=== PATIENT | female | born 1965 | race African-American/Black ===

== ENCOUNTER 2022-08-06 08:50 | Outpatient (CLI) | payer MEDICARE, MEDICAID, SELFPAY ==
--- NOTE | 2022-08-06 09:00 | CRLHL7_ITS ---
For Patients: As a result of the Century Cures Act, medical imaging exams and procedure reports are released immediately into your electronic medical record. You may view this report before your referring provider. If you have questions, please contact your health care provider. INDICATION: right flank pain TECHNIQUE: CT abdomen and pelvis without contrast, stone protocol. COMPARISON: None. FINDINGS: Kidney/ureters: Moderate bilateral renal cortical atrophy. Bilateral renal hypodensities likely represent cysts although subcentimeter lesions are too small characterize. No kidney or ureteral stones and no hydronephrosis. No sign of perinephric inflammation. Ureters are normal in caliber. The bladder is decompressed. Liver/gallbladder/bile ducts: The liver is normal in size, shape and attenuation. Status post cholecystectomy. No biliary dilatation. Spleen/pancreas/adrenal glands: The spleen, adrenal glands and pancreas are within normal limits. GI tract: No evidence of bowel obstruction. Nonspecific submucosal fat deposition throughout the colon, predominantly involving the cecum and ascending colon. Appendix appears normal. Abdominal wall/omentum/peritoneum: No free air or significant free fluid. No mass or inflammation. Lymph nodes: No lymphadenopathy. Pelvis: Unremarkable pelvis. Lower chest: Trace bibasilar atelectasis and pleural thickening. Bones: Mild multilevel degenerative spondylosis without acute fracture or aggressive osseous lesion. IMPRESSION: 1. No evidence of radiopaque nephroureterolithiasis or hydroureteronephrosis. 2. Moderate bilateral renal cortical atrophy. Bilateral renal hypodensities likely represent cysts although subcentimeter lesions are too small characterize. 3. Nonspecific submucosal fat deposition throughout the colon, predominantly involving the cecum and ascending colon. Please note that all CT scans at this facility use dose modulation, iterative reconstruction, and/or weight-based dosing when appropriate to reduce radiation dose to as low as reasonably achievable. Dictated by Stephan Diop MD @ 08/06/2022 10:14:12 AM (Electronically Signed)
== END 2022-08-06 08:51 | disposition home or self-care (01) ==
LOC: CT 08:55
PROVIDERS: Visit Provider Internal Medicine Nephrology
DX: R10.9 Unspecified abdominal pain (principal); N28.1 Cyst of kidney, acquired
CPT/HCPCS: 74176

== ENCOUNTER 2022-09-08 22:26 | Outpatient (CLI) | payer MEDICARE, MEDICAID, SELFPAY | END 2022-09-08 22:27 | disposition home or self-care (01) | LOC: AMB 09-11 23:12 | PROVIDERS: Visit Provider Emergency Medicine Emergency Medical Services | DX: R06.09 Other forms of dyspnea (principal) | CPT/HCPCS: A0425; A0427 ==

== ENCOUNTER 2022-09-08 23:02 | Emergency (ER) | payer MEDICARE, MEDICAID, SELFPAY ==
[2022-09-08 23:08] VITALS: BP 162/84; PULSE 105; RESP 20; TEMP 37.7; O2SAT 98; BMI 34.2
--- NOTE | 2022-09-08 23:27 | CRLHL7_ITS ---
For Patients: As a result of the Century Cures Act, medical imaging exams and procedure reports are released immediately into your electronic medical record. You may view this report before your referring provider. If you have questions, please contact your health care provider. HISTORY: Shortness of breath. COMPARISON: None available. FINDINGS: A portable semi-erect AP view of the chest was obtained at 0050 hours. There is mild diffuse interstitial pulmonary edema with mild vascular engorgement, findings of mild congestive failure. There is no sign of a pleural effusion. There is mild enlargement of the heart. There are sternal wires from median sternotomy. The mediastinum is otherwise normal in appearance. The osseous structures are otherwise normal in appearance for the patient`s age. IMPRESSION: Mild congestive failure. Mild cardiomegaly. Dictated by Veto Corbett MD @ 09/09/2022 1:27:47 AM (Electronically Signed)
--- NOTE | 2022-09-08 23:28 | ED.SOB ---
HPI - SOB/Dyspnea General Chief Complaint: Shortness of Breath/Dyspnea Stated Complaint: Shortness of Breath Time Seen by Provider: 09/08/22 23:19 History of Present Illness HPI Narrative: This 56-year-old female comes in reporting shortness of breath that began this evening. She woke up about 3 hours prior to arrival and felt shortness of breath that seemed to bit worse with exertion. She rested for a while and seemed to improve but then when getting up she felt return of the same symptoms of shortness of breath. She had some mild lightheadedness but denies having any chest pain, nausea, vomiting, or diaphoresis. She does have a history of heart transplant and is scheduled in 2 days to have thorough recheck of her heart. She states that she has had a cough recently and does arrive with a temperature at 99.9?. Her heart rate is also a bit increased at 105 beats per minute. She is maintaining sufficient oximetry at 98% on room air. Review of Systems Status of ROS: Reports: 10 or more systems reviewed and unremarkable except as noted in History and below Narrative: Constitutional: No fevers, no weight gain or loss. Eyes: No discharge. No vision changes. HENT: No congestion, no sore throat, no ear pain. Cardiovascular: No chest pain, no palpitations. Respiratory: No wheezes. Occasional cough. Shortness of breath as described above. Gastrointestinal: No abdominal pain, no vomiting, no diarrhea. Genitourinary: No dysuria, no hematuria. Musculoskeletal: Normal range of motion. Skin: No rashes, no pruritis. Neurological: No dizziness, weakness, sensory change, speech change. Endo/Heme/Allergies: No bruising or bleeding. No polydipsia. Pysch: no suicidality, no anxiety, no insomnia. All other systems reviewed and are negative. Exam Narrative: Exam Narrative: Constitutional: Well-developed, well-nourished, no acute distress. HEENT: Normocephalic, atraumatic. Neck: Normal range of motion. Nontender. Supple. Heart: Regular. Normal rate. Intact distal pulses. Lungs: Clear to auscultation. No chest discomfort. No wheezes, rhonchi, or rales. Abdomen: Normal bowel sounds. Nontender. No rebound tenderness. Genitalia: Deferred. Back: No midline tenderness. Normal range of motion. Extremities: Normal range of motion. No injury. No pedal edema. Skin: Intact. No rash. Warm. No erythema or pallor. Neurologic: No altered sensation. No weakness. Alert and oriented. Psychiatric: No suicidality. No anxiety or depression. No insomnia. Nursing notes and vitals signs are reviewed. Const: Vital Signs, click to edit/add: Vital Signs - 24 hr 09/08/22 23:08 Temperature 99.9 F H Pulse Rate [Left R adial] 105 H Respiratory Rate 20 Blood Pressure [Ri ght Upper Arm] 162/84 H Pulse Oximetry 98 Oxygen Delivery Me thod Room Air Course Vital Signs Vital signs: Initial Vital Signs Temperature 99.9 F H 09/08/22 23:08 Temperature Source Temporal Artery Scan 09/08/22 23:08 Pulse Rate 105 H 09/08/22 23:08 Pulse Rhythm 09/08/22 23:08 Respiratory Rate 20 09/08/22 23:08 Blood Pressure 162/84 H 09/08/22 23:08 Blood Pressure Mean 110 09/08/22 23:08 Blood Pressure Position Semi-Fowlers 09/08/22 23:08 Pulse Oximetry 98 09/08/22 23:08 Oxygen Delivery Method 09/08/22 23:08 Vital Signs Temperature 99.9 F H 09/08/22 23:08 Pulse Rate 105 H 09/08/22 23:08 Respiratory Rate 20 09/08/22 23:08 Blood Pressure 162/84 H 09/08/22 23:08 Pulse Oximetry 98 09/08/22 23:08 Oxygen Delivery Method 09/08/22 23:08 Temperature 99.9 F H 09/08/22 23:08 Pulse Rate 105 H 09/08/22 23:08 Respiratory Rate 20 09/08/22 23:08 Blood Pressure 162/84 H 09/08/22 23:08 Pulse Oximetry 98 09/08/22 23:08 Oxygen Delivery Method 09/08/22 23:08 MDM - SOB/Dyspnea MDM Narrative Medical decision making narrative: This patient comes in with a report of shortness of breath that occurred this evening just few hours prior to arrival. She is not showing any signs of accessory muscles involved in breathing. She is maintaining sufficient oximetry on room air at 98% however her pulse is slightly increased an as his her respiratory rate. She does arrive with temperature of 99.9?. She does have a history of heart transplant and does not describe any chest pain. 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 This is scheduled 2 days from now. Chest x-ray and labs are acquired with results pending at this time. Care for this patient is transferred to the overnight MD at the end of my shift. Dr. Iyer will look after test results and plan accordingly. ECG Data Attestation: I personally reviewed and interpreted this ECG as follows: Interpretation: Sinus tachycardia, rate 100 Cantu beats per minute. There are no specific ST or T-wave abnormalities. Discharge Plan Discharge Clinical Impression: Shortness of breath Follow Up/Referrals: Provider,Not a Local [Primary Care Provider] -
[2022-09-09] VITALS (7 sets, daily range): PULSE 110–114; O2SAT 98–100
[2022-09-09 00:24] LABS: PCR FLU A Negative PCR FLU A (Negative); PCR FLU B Negative PCR FLU B (Negative); PCR RSV Negative PCR RSV (Negative)
[2022-09-09 00:25] LABS: Basophils Absolute Auto 0.02 K/uL (0.00-0.30); Basophils Percent Auto 0.2 % (0.0-3.0); Eosinophils Absolute Auto 0.11 K/uL (0.00-0.50); Eosinophils Percent Auto 1.2 % (0.0-7.0); Hematocrit 32.9 % (33.0-51.0); Hemoglobin* 10.7 gm/dL (12.0-16.0); Immature Granulocytes Abs Auto 0.08 K/uL (0.00-0.30); Immature Granulocytes Pct Auto 0.8 %; Lymphocytes Percent Auto 12.5 % (20-44); Mean Corpuscular HGB Conc 33 gm/dL (32-36); Mean Corpuscular Hemoglobin 34 pg (26-34); Mean Corpuscular Volume 104 fL (80-100); Monocytes Percent Auto 7.1 % (0.0-11.0); Neutrophils Percent Auto 78.2 % (42.0-72.0); Platelet Count* 262 K/uL (140-440); RDW Coefficient of Variation % 12.4 % (11.5-15.5); Red Blood Count 3.17 m/uL (4.00-5.20); White Blood Count* 9.44 K/uL (4.50-11.00)
[2022-09-09 00:25] LABS: SARS PCR* Negative SARS-CoV-2 (Negative)
[2022-09-09 00:26] LABS: Slide Review Reflex No
[2022-09-09 00:31] LABS: Troponin, Point-of-Care* 0.02 ng/ml (0.01-0.04)
[2022-09-09 00:40] LABS: Chloride* 102 mmol/L (96-114); Sodium* 138 mmol/L (135-149)
[2022-09-09 00:43] LABS: Blood Urea Nitrogen* 69 mg/dL (7-30); Calcium* 9.2 mg/dL (8.4-10.6); Carbon Dioxide* 22 mmol/L (20-32); Glucose* 96 mg/dL (60-115)
[2022-09-09 00:45] LABS: D Dimer Quantitative* 1.03 ug/ml (0.00-0.50)
[2022-09-09 00:49] LABS: Potassium* 6.7 mmol/L (3.6-5.1)
[2022-09-09 00:50] LABS: Creatinine* 17.6 mg/dL (0.5-1.5); Est. Creatinine Clearance* 3.38; Estimated Glomerular Filt Rate 2 ml/min
[2022-09-09 00:56] LABS: NT Pro B Type NatriureticPept* 24300 pg/mL
[2022-09-09] MEDS: AMOXICILLIN/CLAVULANATE 875 mg/125 mg TABLET PO (02:03)
== END 2022-09-09 02:21 | disposition home or self-care (01) ==
PROVIDERS: Emergency Provider Emergency Medicine Emergency Medical Services
DX: E87.70 Fluid overload, unspecified (principal); E87.5 Hyperkalemia
CPT/HCPCS: 36415; 71045; 80048; 83880; 84484; 85025; 85379; 87040; 87502; 87634; 87635; 93005; 94761; 96365; 99284; A9270; J0610

== ENCOUNTER 2023-07-09 14:42 | Emergency (ER) | payer MEDICARE, MEDICAID, SELFPAY ==
[2023-07-09] VITALS (13 sets, daily range): BP systolic 116–141; BP diastolic 80–92; PULSE 89–100; RESP 18; TEMP 36.8; O2SAT 78–100; BMI 26.8
--- NOTE | 2023-07-09 15:00 | ED_ITS ---
HPI - Weakness General Time Seen by Provider: 15:00 Date Seen: 07/09/23 Chief complaint: Weakness Stated complaint: Confusion, hallucinations post op Time Seen by Provider: 07/09/23 14:58 Source: patient and RN notes reviewed Mode of arrival: ambulatory Limitations: no limitations History of Present Illness HPI Narrative: Patient is a 57-year-old female with end-stage renal disease undetermined etiology coming in with weakness, hallucinations. She missed 1 dialysis last week, missed her dialysis this morning as she was just too tired and fatigued to get up. Two weeks ago she had a mass or nodule removed from her right lung, it had been growing. She is going to be listed on the kidney transplant list, they were completing her workup to ensure that there was no cancer in this nodule so that she was appropriate for listing. She had a heart transplant for cardiomyopathy of unknown etiology dating back to 2004, transplant happened at the [facility] in 2014. They believe her renal failure may stem from the heart transplant per her report. She has had no fevers. Since the hospitalization, she is been having visual hallucinations. She is seen her grandkids in her room and talking to them at night. She becomes aware that she is hallucinating and can ground herself. These are happening more at night. She was on scheduled oxycodone and Robaxin during the hospitalization, has been diminishing the. She has use p.r.n. oxycodone for years per report. They do agree that this may be medication related but wanted her evaluated. She is plain a game on handheld device and talking to me while I am in there with her, she is accompanied by her daughter. No active hallucinations at this time. She does not make any urine and has not for years per report. Complaint: generalized weakness and lack of energy Related Data Home Medications Medication Instructions Recorded Confirmed aspirin 81 mg chewable tablet 1 tab PO DAILY 07/09/23 07/09/23 folic acid 1 mg tablet 1 mg PO DAILY 07/09/23 07/09/23 levetiracetam 1,000 mg tablet 1,000 mg PO QPM 07/09/23 07/09/23 losartan 25 mg tablet (Cozaar) 25 mg PO DAILY 07/09/23 07/09/23 mycophenolate mofetil 500 mg tablet 500 mg PO BID 01/10/24 01/10/24 oxycodone 10 mg tablet 10 mg PO Q6H PRN chronic pain 07/09/23 07/09/23 pantoprazole 40 mg tablet,delayed 40 mg PO DAILY 07/09/23 07/09/23 release rosuvastatin 10 mg tablet 10 mg PO DAILY 07/09/23 07/09/23 tacrolimus 0.5 mg capsule, mg PO 07/09/23 immediate-release Allergies Allergy/AdvReac Type Severity Reaction Status Date / Time eszopiclone [From Lunesta] Allergy Intermediate Verified 09/09/22 00:22 Review of Systems Status of ROS: Reports: 6 or more systems reviewed and unremarkable except as noted in History and below [facility] Social History Smoking Status: Never smoker How often do you have a drink containing alcohol: never How often do you have six or more drinks on one occasion: Never AUDIT-C Alcohol total score: 0 Non-prescribed substance use: denies use service: No Exam Const: Vital Signs, click to edit/add: Vital Signs - 24 hr 07/09/23 20:32 07/09/23 20:33 Pulse Rate 89 98 Blood Pressure 135/92 H Pulse Oximetry 94 78 L Andie is a 57-year-old female that is alert, interactive, no apparent distress. She is able to speak in complete sentences, symmetrical facial function. Neck is supple, no masses. Lungs are clear, good air entry, no wheezing or crackles. She has a bandage on the right posterolateral lower chest wall, see no evidence of swelling or erythema around this. CV regular rate and rhythm, no murmur, normal S1 on S2, no S3-S4. Abdomen is soft, nontend er, nondistended. She is ambulatory into the ED of her own accord, moving all her extremities. No significant edema, no lower extremity tenderness. Course Course ED Course: They are most concerned about the hallucinations. We did discuss infectious etiology, possible side effects of medications. Electrolyte abnormalities need to be considered, uremia given she is a dialysis patient. Have reviewed with them that we cannot accommodate dialysis here, unfortunately earlier today there are absolutely no beds elsewhere anywhere in the system. Patient reported to me that she usually is hospitalized at the [facility]. I did review with her that we cannot transfer if there is no capacity for bed placement. However, I think at this point we just need to do our workup and see where we are at. If we find no significant abnormality, it is possible she could be discharged to home with further follow-up with her Nephrology Team to discuss medication management. It certainly could be that with the buildup of the increased use of oxycodone and Robaxin that she is having some hallucinations or complications with medication management. Will do full laboratory workup, will look at a chest x-ray, head CT. We have also discussed doing the triple viral swab which they do agree to do. Reevaluation(s) Time of Reevaluation #1: 17:16 Reevaluation #1: Reviewed the imaging reports with patient and her daughter. She has had a prior stroke, could not pull up a CT in her my chart. Stroke was in 2019, sounds as if it was complicated by seizure. She was noted to be tired, sleeping more, slurred speech. I was able to pull up her recent white blood count on 07/02/2023 which was 6600. We reviewed her white blood count is much more elevated in the 18,000 range right now. I suspect possible respiratory infection given her chest x-ray findings and recent surgery there. We have agreed to do a chest CT noncontrast. We reviewed that her creatinine is in the 9 range but the e lectrolytes are stable. We reviewed that there is no capacity to do an MRI here of her brain tonight. Her daughter is going to see if she can find an old head CT report while we await on the chest CT to be done. In any event, her hallucinations have been present for over 2 weeks, she has no new focal neurologic deficit that would suggest she needs any emergent brain MRI tonight. I do think in outpatient brain MRI is safe to be done at a later date if there is any question of a new stroke. Time of Reevaluation #2: 19:01 Reevaluation #2: Have reviewed with patient and her daughter that there are some CT findings of the chest that would point to infection. With her elevated white count, increased weakness this morning, do think she has infection. Unfortunately she is a dialysis patient, this severely limits capacity for hospitalization. She states she wants to go into the hospital, reviewed with her daughter that the only [place] bed that we found open was in [facility] the [facility] facility. She declined transferring her mom there and obviously do not know that they could take her, haven't called anywhere for her. Her mom wants to go to the [facility]. I have again reviewed with them that there really is no bed capacity. With a very recent transfer, the only beds that I found available were at the [facility] and potentially 1 in [facility]. I doubt either of these facilities could take her due to the dialysis but we will check. Her daughter does not want her to go to either of these places. We will call the [facility] system and see if they have any new capacity. If she discharges, would likely have her take Augmentin at renal dosing. Have provided a copy of the CT report for her daughter to get to her surgeon. Her hallucinations have been going on for 2 weeks, are not worsening, daughter did see that she had had an old prior left cerebral infarct in prior documents. I was not able to see that. I do think that she is stable to discharge overnight with outpatient follow-up tomorrow for recheck. I do understand her request to go in the hospital and thus will check to see if there is any capacity. Time of Reevaluation #3: 19:20 Reevaluation #3: Nursing staff did call, the transfer nurse told them that the whole system was at capacity, could try to call back at 9:00 a.m. in the morning. I related this to the patient and her daughter. She really wants admission. I reviewed with them that we do not have beds here, would not admit her here due to dialysis anyway. I will personally try to call up to the [facility], her surgeon was Dr. Gigi Staples. I do understand her complexity, immunocompromised state, would favor her being admitted. Did talk to the transfer center at 7:24 p.m.. They can wait list her, will see if I can talk to them further, she is putting this through to the nurse. Do need to consider antibiotics for this patient but I am going to try to wait to talk to someone there 1st. Consultations Consultation #1: Did speak with the covering thoracic surgeon Dr. Ferguson, she agreed patient should be transferred to the ED. Did subsequently speak with Dr. Howell in the ER, he agreed with her complexity, probable underlying right lung infection status post surgery in a patient likely did need dialysis but not emergently. She has medical complexities of end-stage renal disease on dialysis, status post heart transplant on immunosuppressants. Did start an IV, opted to give her renally dosed Zosyn at 2.25 mg. Lab her on cardiac monitoring, electrolytes just recently wrist stable but could change for her. She will go to the [facility] ER. I have contacted Radiology, they are going to push all of her images through. Time: 19:56 Vital Signs Vital signs: Initial Vital Signs Temperature 98.2 F 07/09/23 14:49 Temperature Source Temporal Artery Scan 07/09/23 14:49 Pulse Rate 96 07/09/23 14:49 Respiratory Rate 18 07/09/23 14:49 Blood Pressure 121/80 07/09/23 14:49 Blood Pressure Mean 93 07/09/23 14:49 Blood Pressure Position Sitting 07/09/23 14:49 Pulse Oximetry 95 07/09/23 14:49 Oxygen Delivery Method Room Air 07/09/23 14:49 Vital Signs Temperature 98.2 F 07/09/23 14:49 Pulse Rate 96 07/09/23 14:49 Respiratory Rate 18 07/09/23 14:49 Blood Pressure 121/80 07/09/23 14:49 Pulse Oximetry 95 07/09/23 14:49 Oxygen Delivery Method Room Air 07/09/23 14:49 Temperature 98.3 F 07/09/23 17:03 Pulse Rate 98 07/09/23 20:33 Respiratory Rate 18 07/09/23 17:53 Blood Pressure 135/92 H 07/09/23 20:32 Pulse Oximetry 78 L 07/09/23 20:33 Oxygen Delivery Method Room Air 07/09/23 17:53 Medications Administered Medications: Discontinued Medications Generic Name Dose Route Start Last Admin Trade Name Freq PRN Reason Stop Dose Admin Acetaminophen 650 mg 07/09/23 20:26 07/09/23 20:35 Acetaminophen 325 Mg Tablet PO 07/09/23 20:27 650 mg ONCE ONE Administration Piperacillin Sod/Tazobactam 100 mls @ 200 mls/hr 07/09/23 19:51 07/09/23 21:27 Sod 2.25 gm/ Sodium Chloride IVPB 07/09/23 19:52 Infused ONCE ONE Infusion MDM - Weakness Lab Data Attestation: I reviewed the patient's lab results. Labs: Lab Results 07/09/23 07/09/23 Range/Units 15:01 15:25 WBC 18.21 H (4.50-11.00) K/uL RBC 2.60 L (4.00-5.20) m/uL Hgb 8.6 L (12.0-16.0) gm/dL Hct 26.6 L (33.0-51.0) % MCV 102 H (80-100) fL MCH 33 (26-34) pg MCHC 32 (32-36) gm/dL RDW Coeff of Regine 14.8 (11.5-15.5) % Plt Count 439 (140-440) K/uL Neut % (Auto) 88.5 H (42.0-72.0) % Lymph % (Auto) 5.9 L (20-44) % Dane % (Auto) 3.6 (0.0-11.0) % Eos % (Auto) 1.6 (0.0-7.0) % Baso % (Auto) 0.2 (0.0-3.0) % Neut # (Auto) 16.10 H (1.7-7.0) K/uL Lymph # (Auto) 1.10 (0.90-2.90) K/uL Dane # (Auto) 0.70 (0.00-0.90) K/UL Eos # (Auto) 0.30 (0.00-0.50) K/uL Baso # (Auto) 0.00 (0.00-0.30) K/uL Abs Immat Gran (auto) 0.00 (0.00-0.30) K/uL Imm/Tot Granulo (auto) 0.2 % Sodium 135 (135-149) mmol/L Potassium 4.1 (3.6-5.1) mmol/L Chloride 98 (96-114) mmol/L Carbon Dioxide 21 (20-32) mmol/L Anion Gap 16 H (7-15) mEq/L BUN 40 H (7-30) mg/dL Creatinine 9.2 H (0.5-1.5) mg/dL Estimated Creat Clear 6.39 Estimated GFR 5 ml/min Glucose 107 (60-115) mg/dL Lactate 1.3 (0.5-1.9) mmol/L Calcium 9.8 (8.4-10.6) mg/dL Phosphorus 3.6 (2.5-4.5) mg/dL Magnesium 2.4 (1.5-2.6) mg/dL Total Bilirubin 0.8 (0.1-1.5) mg/dL AST 34 (12-35) U/L ALT 17 (4-35) U/L Alkaline Phosphatase 245 H (40-150) U/L Ammonia < 9.0 L (13.1-30.0) umol/L Troponin I 0.02 (0.01-0.04) ng/mL C-Reactive Protein 16.5 H (0.5-1.0) mg/dL NT-Pro-B Natriuret Pep 05822 pg/mL Total Protein 7.7 (6.0-8.3) g/dL Albumin 4.1 (3.3-5.0) g/dL Procalcitonin 1.46 H (<0.50) ng/mL SARS-CoV-2 (PCR) Negative SARS-CoV-2 (Negative) Influenza Type A (PCR) Negative PCR FLU A (Negative) Influenza Type B (PCR) Negative PCR FLU B (Negative) RSV (PCR) Negative PCR RSV (Negative) Imaging Data CT scan - head: Attestation: I have reviewed the pertinent imaging results. My impression: Did speak with radiologist regarding these findings. Unfortunately there was no heavy equipment service technician available immediately after taking the phone call. Patient has had symptoms for over 2 weeks now, this is not likely an acute infarct. Will be speaking with her and her daughter Radiologist's impression: Patient: ANDIE OROZCO Facility:?[facility] Patient ID:?[id number] Site Patient ID:?[id number]. Site :?1965 Study:?CT Head w/o Contrast-07/09/2023 4:27:20 PM Ordering Physician:Dania Salinas Final Report: INDICATION: Hallucinations. TECHNIQUE: Noncontrast CT of the head with multiplanar reformat in bone and soft tissue algorithms. COMPARISON: None available. FINDINGS: No acute intracranial hemorrhage. A focal hypodensity in the left temporo- occipital region in proximity to Wernicke`s area. Suggestion of mild ex vacuo dilatation of the underlying left lateral ventricle. No ventricular obstruction. Mild atherosclerotic calcification of the carotid siphons. The skull base and calvarium are within normal limits. Orbits are unremarkable. Paranasal sinuses and mastoid air cells are predominantly clear. IMPRESSION: 1. No acute intracranial hemorrhage. 2. Focal hypodensity in the left temporo-occipital region in proximity to Wernicke`s area, age-indeterminate but favored to be chronic. If there is clinical concern for acute ischemia, consider further MR characterization. Please note that all CT scans at this facility use dose modulation, iterative reconstruction, and/or weight-based dosing when appropriate to reduce radiation dose to as low as reasonably achievable. Dictated by Yimi Corey MD @ 07/09/2023 4:57:31 PM (Electronic Signature) Chest x-ray: Attestation: I have reviewed the pertinent imaging results. My impression: See changes on her right lung field, await Radiology over-read. Radiologist's impression: Patient: [facility] Facility:?[facility] Patient ID:?[id number] Site Patient ID:?[id number]. Site :?1965 Study:?XRay Chest 2 VIEWS-07/09/2023 4:27:27 PM Ordering Physician:Dania Salinas Final Report: INDICATION: WEAKNESS, RT LUNG NODULE REMOVAL 06/26/23 TECHNIQUE: Chest 2 views. COMPARISON: Chest radiograph from September 09, 2022 FINDINGS/IMPRESSION: Status post median sternotomy. Mild cardiomegaly. Right-sided pleural effusion tracking along the right lateral chest wall and extending in the right major fissure with likely extension to the right lung apex with oval-shaped lucency seen at the right lung apex, may represent small amount of air within the pleural effusion. Right mid lung zone opacities, may represent atelectatic changes versus an acute infectious/inflammatory process. The left lung is clear. No displaced fractures. Dictated by Amol Lance MD @ 07/09/2023 5:02:31 PM (Electronic Signature) CT scan - chest: Attestation: I have reviewed the pertinent imaging results. Radiologist's impression: Patient: ANDIE [place] Facility:?[facility] Patient ID:?[id number] Site Patient ID:?[id number]. Site :?1965 Study:?CT Chest w/o Contrast-07/09/2023 5:59:28 PM Ordering Physician:Dania Salinas Final Report: INDICATION: Weakness, leukocytosis and recent right lung surgery. TECHNIQUE: Axial images were obtained from the thoracic inlet to the diaphragm. Reformats: Coronal and sagittal IV Contrast: None COMPARISON: None. FINDINGS: Mediastinum: Thyroid gland is unremarkable. The patient is status post cardiac transplant with a suture line at the proximal pulmonary artery and at the distal ascending aorta. Precarinal lymph nodes measure up to 10 millimeters in short axis. Lungs and Pleural Space: Pleural thickening bilaterally with some calcification of the left pleura. Trace loculated right pleural fluid in the inferior aspect of the hemithorax. Trace right pleural air. Minimal loculated air at the apex of the right hemithorax with suture line at the right upper lobe with adjacent linear scarring and slight bronchiectasis. Right upper lobe pulmonary nodules measuring 6 millimeters (series 3, image 32) and 5 millimeters (series 3, image 37). Elongated soft tissue lesion extends from the level of the right upper lobe through the minor fissure into the right lower lobe abutting the right major fissure. This measures at least 6 centimeters in length (series 5, image 69). Mild dependent atelectasis within the lower lungs with bandlike areas of parenchymal scarring. Chest wall: No masses. Upper abdomen: Status post cholecystectomy. Right renal cyst measuring 2.9 centimeters. Bones: Status post median sternotomy. Periosteal thickening adjacent to the left 6th and 7th ribs anteriorly. IMPRESSION: 1. Status post right lung surgery by history with right pleural thickening and trace loculated right pleural effusion inferiorly. Minimal loculated areas of pneumothorax, likely related to the recent surgery. 2. Indeterminate pulmonary nodules right upper lobe measuring 6 millimeters and 5 millimeters with indeterminate tubular structure extending from the right upper lobe into the right middle lobe. Differential is broad including infectious process, mass lesion or postsurgical scarring. Consider re-evaluation at short-term follow-up. 3. Scattered areas of subsegmental atelectasis within both lungs. 4. Status post cardiac transplant. Please note that all CT scans at this facility use dose modulation, iterative reconstruction, and/or weight-based dosing when appropriate to reduce radiation dose to as low as reasonably achievable. Dictated by Jr Shay MD @ 07/09/2023 6:47:15 PM (Electronic Signature) ECG Data Attestation: I personally reviewed and interpreted this ECG as follows: (Sinus rhythm with sinus arrhythmia, 94 beats per minute. Incomplete right bundle branch block, left anterior fascicular block. No evidence of any active ischemia. QT corrected 477 milliseconds.) ECG interpretation date: 07/09/23 Prior ECG tracings: not available for review Discharge Plan Discharge Clinical Impression: Hallucinations Complication, postoperative infection Qualifiers: Encounter type: initial encounter Postoperative infection type: organ or organ space surgical site Qualified Code(s): T81.43XA - Infection following a procedure, organ and space surgical site, initial encounter Patient Disposition: [facility] Discharge Location: [facility] Activity Level: Activity as Tolerated Discharge Diet: Regular
--- NOTE | 2023-07-09 15:15 | CRLHL7_ITS ---
For Patients: As a result of the Century Cures Act, medical imaging exams and procedure reports are released immediately into your electronic medical record. You may view this report before your referring provider. If you have questions, please contact your health care provider. INDICATION: WEAKNESS, RT LUNG NODULE REMOVAL 06/26/23 TECHNIQUE: Chest 2 views. COMPARISON: Chest radiograph from September 09, 2022 FINDINGS/IMPRESSION: Status post median sternotomy. Mild cardiomegaly. Right-sided pleural effusion tracking along the right lateral chest wall and extending in the right major fissure with likely extension to the right lung apex with oval-shaped lucency seen at the right lung apex, may represent small amount of air within the pleural effusion. Right mid lung zone opacities, may represent atelectatic changes versus an acute infectious/inflammatory process. The left lung is clear. No displaced fractures. Dictated by Amol Lance MD @ 07/09/2023 5:02:31 PM (Electronically Signed)
--- NOTE | 2023-07-09 15:15 | CRLHL7_ITS ---
For Patients: As a result of the Century Cures Act, medical imaging exams and procedure reports are released immediately into your electronic medical record. You may view this report before your referring provider. If you have questions, please contact your health care provider. INDICATION: Hallucinations. TECHNIQUE: Noncontrast CT of the head with multiplanar reformat in bone and soft tissue algorithms. COMPARISON: None available. FINDINGS: No acute intracranial hemorrhage. A focal hypodensity in the left temporo-occipital region in proximity to Wernicke`s area. Suggestion of mild ex vacuo dilatation of the underlying left lateral ventricle. No ventricular obstruction. Mild atherosclerotic calcification of the carotid siphons. The skull base and calvarium are within normal limits. Orbits are unremarkable. Paranasal sinuses and mastoid air cells are predominantly clear. IMPRESSION: 1. No acute intracranial hemorrhage. 2. Focal hypodensity in the left temporo-occipital region in proximity to Wernicke`s area, age-indeterminate but favored to be chronic. If there is clinical concern for acute ischemia, consider further MR characterization. Please note that all CT scans at this facility use dose modulation, iterative reconstruction, and/or weight-based dosing when appropriate to reduce radiation dose to as low as reasonably achievable. Dictated by Yimi Corey MD @ 07/09/2023 4:57:31 PM (Electronically Signed)
[2023-07-09 15:57] LABS: Lactate* 1.3 mmol/L (0.5-1.9)
[2023-07-09 16:08] LABS: Basophils Percent Auto 0.2 % (0.0-3.0); Eosinophils Percent Auto 1.6 % (0.0-7.0); Hematocrit 26.6 % (33.0-51.0); Hemoglobin* 8.6 gm/dL (12.0-16.0); Immature Granulocytes Pct Auto 0.2 %; Lymphocytes Percent Auto 5.9 % (20-44); Mean Corpuscular HGB Conc 32 gm/dL (32-36); Mean Corpuscular Hemoglobin 33 pg (26-34); Mean Corpuscular Volume 102 fL (80-100); Monocytes Percent Auto 3.6 % (0.0-11.0); Neutrophils Percent Auto 88.5 % (42.0-72.0); Platelet Count* 439 K/uL (140-440); RDW Coefficient of Variation % 14.8 % (11.5-15.5); White Blood Count* 18.21 K/uL (4.50-11.00)
[2023-07-09 16:09] LABS: PCR FLU A Negative PCR FLU A (Negative); PCR FLU B Negative PCR FLU B (Negative); PCR RSV Negative PCR RSV (Negative); SARS PCR* Negative SARS-CoV-2 (Negative)
[2023-07-09 16:23] LABS: Slide Review Reflex No
[2023-07-09 16:24] LABS: Chloride* 98 mmol/L (96-114)
[2023-07-09 16:25] LABS: Albumin* 4.1 g/dL (3.3-5.0); Potassium* 4.1 mmol/L (3.6-5.1); Sodium* 135 mmol/L (135-149)
[2023-07-09 16:27] LABS: Creatinine* 9.2 mg/dL (0.5-1.5); Est. Creatinine Clearance* 6.39; Estimated Glomerular Filt Rate 5 ml/min
[2023-07-09 16:28] LABS: Alanine Aminotransferase* 17 U/L (4-35); Alkaline Phosphatase* 245 U/L (40-150); Anion Gap 16 mEq/L (7-15); Aspartate Amino Transferase* 34 U/L (12-35); Bilirubin Total* 0.8 mg/dL (0.1-1.5); Blood Urea Nitrogen* 40 mg/dL (7-30); Calcium* 9.8 mg/dL (8.4-10.6); Carbon Dioxide* 21 mmol/L (20-32); Glucose* 107 mg/dL (60-115); Total Protein* 7.7 g/dL (6.0-8.3)
[2023-07-09 16:29] LABS: Magnesium* 2.4 mg/dL (1.5-2.6); Phosphorus* 3.6 mg/dL (2.5-4.5)
[2023-07-09 16:40] LABS: Troponin I* 0.02 ng/mL (0.01-0.04)
[2023-07-09 16:44] LABS: Procalcitonin* 1.46 ng/mL (<0.50)
[2023-07-09 16:52] LABS: Ammonia* < 9.0 umol/L (13.1-30.0)
[2023-07-09 16:54] LABS: C Reactive Protein* 16.5 mg/dL (0.5-1.0)
[2023-07-09 16:55] LABS: NT Pro B Type NatriureticPept* 31000 pg/mL
--- NOTE | 2023-07-09 17:17 | CRLHL7_ITS ---
For Patients: As a result of the Century Cures Act, medical imaging exams and procedure reports are released immediately into your electronic medical record. You may view this report before your referring provider. If you have questions, please contact your health care provider. INDICATION: Weakness, leukocytosis and recent right lung surgery. TECHNIQUE: Axial images were obtained from the thoracic inlet to the diaphragm. Reformats: Coronal and sagittal IV Contrast: None COMPARISON: None. FINDINGS: Mediastinum: Thyroid gland is unremarkable. The patient is status post cardiac transplant with a suture line at the proximal pulmonary artery and at the distal ascending aorta. Precarinal lymph nodes measure up to 10 millimeters in short axis. Lungs and Pleural Space: Pleural thickening bilaterally with some calcification of the left pleura. Trace loculated right pleural fluid in the inferior aspect of the hemithorax. Trace right pleural air. Minimal loculated air at the apex of the right hemithorax with suture line at the right upper lobe with adjacent linear scarring and slight bronchiectasis. Right upper lobe pulmonary nodules measuring 6 millimeters (series 3, image 32) and 5 millimeters (series 3, image 37). Elongated soft tissue lesion extends from the level of the right upper lobe through the minor fissure into the right lower lobe abutting the right major fissure. This measures at least 6 centimeters in length (series 5, image 69). Mild dependent atelectasis within the lower lungs with bandlike areas of parenchymal scarring. Chest wall: No masses. Upper abdomen: Status post cholecystectomy. Right renal cyst measuring 2.9 centimeters. Bones: Status post median sternotomy. Periosteal thickening adjacent to the left 6th and 7th ribs anteriorly. IMPRESSION: 1. Status post right lung surgery by history with right pleural thickening and trace loculated right pleural effusion inferiorly. Minimal loculated areas of pneumothorax, likely related to the recent surgery. 2. Indeterminate pulmonary nodules right upper lobe measuring 6 millimeters and 5 millimeters with indeterminate tubular structure extending from the right upper lobe into the right middle lobe. Differential is broad including infectious process, mass lesion or postsurgical scarring. Consider re-evaluation at short-term follow-up. 3. Scattered areas of subsegmental atelectasis within both lungs. 4. Status post cardiac transplant. Please note that all CT scans at this facility use dose modulation, iterative reconstruction, and/or weight-based dosing when appropriate to reduce radiation dose to as low as reasonably achievable. Dictated by Jr Shay MD @ 07/09/2023 6:47:15 PM (Electronically Signed)
--- NOTE | 2023-07-09 19:01 | ED.NURSE ---
Pt report given to oncsallie RN
[2023-07-09] MEDS: PIPERACILLIN/TAZOBACTAM 2.25 GM in 0.9 % SODIUM CHLORIDE Mini-bag 100 ML IVPB (20:35)
[2023-07-09] MEDS: ACETAMINOPHEN 325 MG TABLET 650 MG PO (20:35)
--- NOTE | 2023-07-09 22:20 | ED.NURSE ---
This nurse called daughter and updated her to pt transfer to [facility]. Daughter aware of plan of care. Pt also informed daughter was called and updated.
== END 2023-07-09 22:20 | disposition short-term general hospital (02) ==
PROVIDERS: Emergency Provider Family Medicine
DX: R44.3 Hallucinations, unspecified (principal); T81.43XA Infection following a procedure, organ and space surgical site, initial encounter
CPT/HCPCS: 36415; 70450; 71046; 71250; 80053; 82140; 83605; 83735; 83880; 84100; 84145; 84484; 85025; 86140; 87631; 93005; 94761; 96365; 99285; A9270; J2543

== ENCOUNTER 2023-07-09 22:09 | Outpatient (CLI) | payer MEDICARE, MEDICAID, SELFPAY | END 2023-07-09 22:10 | disposition home or self-care (01) | LOC: AMB 07-14 02:47 | PROVIDERS: Visit Provider Emergency Medicine Emergency Medical Services | DX: J18.9 Pneumonia, unspecified organism (principal); R07.89 Other chest pain; R41.82 Altered mental status, unspecified; R06.09 Other forms of dyspnea | CPT/HCPCS: A0425; A0428 ==

== ENCOUNTER 2023-08-10 15:15 | Emergency (ER) | payer MEDICARE, MEDICAID, SELFPAY ==
[2023-08-10] VITALS (27 sets, daily range): BP systolic 165; BP diastolic 102–105; PULSE 101–111; RESP 28; TEMP 36.3; O2SAT 82–100; BMI 25.0
--- OUTSIDE RECORDS SUMMARY | 2023-08-10 16:15 | XMS_ITS | Encounter Summary ---
Author Name Unknown Organization [facility] Address [address] [place] [address] Care Team Providers Care Special Education Curriculum Specialist Name Role Phone Unavailable Primary Care Provider Unavailabl e Encounter Details Date Type Department Care Team (Late st Contact Info) Description 06/09/2023 Orders Only Division of Nephrology and Hypertension in [place], [place] [address] [place] [phone] Robert Engel Jr., D.O. [address] [place] [address] Social History Tobacco Use Types Packs/Day Years Used Date Smoking Tobacco: Never Assessed Nutrition Answer Date Recorded Nutrition: EVOO Fat Source Unknown 01/14 Nutrition: Servings of Fruits/Vegetables per Day Not on file 01/14/2022 Dental Answer Date Recorded Dental: Regular Dentist Unknown 01/15/20 Sex and Gender Information Value Date Recorded Sex Assigned at Not on file Gender Identity Not on file Sexual Orientation Not on file documented as of this encounter Plan of Treatment Not on file documented as of this encounter Visit Diagnoses Not on filedocumented in this encounter
--- OUTSIDE RECORDS SUMMARY | 2023-08-10 16:15 | XMS_ITS | Continuity of Care Document ---
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(Discharge Diagnosis) - 02/06/23 Discharge Disposition: Home or Self Care Attending Physician: YOSVANY Spann APRN, KELLEN, Bethany Allergies, Adverse Reactions, Alerts Substance Reaction Severity Status Liquid Adhesive Dermatitis Active Adhesive Bandage Contact dermatitis Blisters of multiple sites Unknown Active lisinopril Cough Unknown Active zolpidem sleep disturbance Unknown Active eszopiclone Headache Unknown Active buPROPion Itching Active oxyCODONE 1 Itching Unknown Active ARIPiprazole Insomnia Unknown Active 1Outside Source Comment: Itching with long acting; short acting does work with no side effects Immunizations Given and Recorded Vaccine Date Status Refusal Reason SARS-CoV-2 (COVID-19) [place] [id number] 08/14/20 Record ed SARS-CoV-2 (COVID-19) Esme Ad26 vacc 07/17/20 R ecorded influenza virus vaccine, inactivated 04/10/20 Massimo rded influenza virus vaccine, inactivated 1 07/23/19 Re corded influenza virus vaccine, inactivated 2 04/04/17 Re corded influenza virus vaccine, inactivated 3 04/28/15 Re corded influenza virus vaccine, inactivated 4 03/31/14 Re corded influenza virus vaccine, inactivated 5 06/20/13 Re corded influenza virus vaccine, inactivated 6 04/02/11 Re corded zoster vaccine, inactivated 7 07/23/19 Recorded zoster vaccine, inactivated 8 02/02/19 Recorded Tdap 9 02/02/19 Recorded Tdap 11/10/08 Recorded pneumococcal (PPS23) 01/19/18 Recorded pneumococcal (PPS23) 11/06/16 Recorded pneumococcal (PPS23) 10 04/28/15 Recorded pneumococcal (PCV13) 11 11/06/16 Recorded influenza 12 05/09/16 Recorded influenza 04/08/12 Recorded influenza 04/02/11 Recorded influenza 04/10/10 Recorded influenza 05/11/08 Recorded influenza 06/11/06 Recorded influenza 04/24/05 Recorded Hep B 11/26/13 Recorded pneumococcal (PCV7) 11/10/08 Recorded tetanus 11/28/98 Recorded tetanus 06/19/94 Recorded 1Result Comment: Route: Intramuscular Project Scheduler: [employer] 2Result Comment: Route: Intramuscular Project Scheduler: [employer] 3Result Comment: Route: Intramuscular Project Scheduler: [employer] 4Result Comment: Route: Intramuscular Project Scheduler: [employer] 5Result Comment: Route: Intramuscular Project Scheduler: [employer] 6Result Comment: Route: Intramuscular Project Scheduler: [employer] 7Result Comment: Route: Intramuscular Project Scheduler: [employer] 8Result Comment: Route: Intramuscular Project Scheduler: [employer] 9Result Comment: Route: Intramuscular Project Scheduler: [employer] 10Result Comment: Route: Intramuscular Project Scheduler: [employer] 11Result Comment: Route: Intramuscular Project Scheduler: Wyeth 12Result Comment: Route: Intramuscular Project Scheduler: Sanofi [employer] Medications aspirin 81 mg oral capsule 0 Refill(s) Start Date: 10/22/21 Status: Ordered cholecalciferol 1000 intl units oral capsule 1000.0 U, 0 Refill(s) Start Date: 10/22/21 Status: Ordered folic acid 1 mg oral tablet 0 Refill(s) Start Date: 10/22/21 Status: Ordered levETIRAcetam 1000 mg oral tablet 0 Refill(s) Start Date: 10/22/21 Status: Ordered lidocaine 0.5% topical gel 0 Refill(s) Start Date: 10/22/21 Status: Ordered midodrine 10 mg oral tablet 0 Refill(s) Start Date: 10/22/21 Status: Ordered Multiple Vitamins oral capsule 0 Refill(s) Start Date: 10/22/21 Status: Ordered Narcan 4 mg/0.1 mL nasal spray 4 mg, 0 Refill(s) Start Date: 10/22/21 Status: Ordered OLANZapine 5 mg oral tablet 7.5 mg, 0 Refill(s) Start Date: 10/22/21 Status: Ordered oxyCODONE 10 mg oral tablet 10 mg, 0 Refill(s) Start Date: 10/22/21 Status: Ordered rosuvastatin 10 mg oral tablet 10 mg, 0 Refill(s) Start Date: 10/22/21 Status: Ordered tacrolimus 0.5 mg oral capsule 0 Refill(s) Start Date: 10/22/21 Status: Ordered tacrolimus 1 mg oral capsule 0 Refill(s) Start Date: 10/22/21 Status: Ordered venlafaxine 37.5 mg oral tablet, extended release 37.5 mg, 0 Refill(s) Start Date: 10/22/21 Status: Ordered Problem List Condition Confirmation Course Effective Dates Status Health Status Informant Acquired arteriovenous fistula (disorder) Confirmed Active Anemia in chronic kidney disease Confirmed Active Cerebrovascular accident Confirmed 05/14/19 Active Chronic kidney disease due to type 2 diabetes mellitus (disorder) Confirmed Active Chronic rejection of cardiac transplant Confirmed Active Dependence on dialysis due to end stage renal disease Confirmed Active End stage renal failure on dialysis Confirmed 03/01/20 Active H/O: heart recipient Confirmed 07/15/18 Active 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) Confirmed Active Hyperlipidemia Confirmed 03/29/13 Active 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 Confirmed Active 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 Confirmed Active Immunodeficiency Confirmed Active Obstructive sleep apnea syndrome Confirmed 03/29/13 Active Peripheral neuropathic pain Confirmed 05/21/16 Active Recurrent major depressive episodes, moderate Confirmed Active Seizure Confirmed 07/03/18 Active Diagnosis Diagnosis Type Effective Dates Health Status Clinical Service Informant Recurrent major depressive episodes, moderate Discharge Diagnosis 02/06/23 End stage renal failure on dialysis Discharge Diagnosis 02/06/23 Obstructive sleep apnea syndrome Discharge Diagnosis 02/06/23 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 Discharge Diagnosis 02/06/23 Social History Social History Type Response Smoking Status Former smoker, quit more than 30 days ago entered on: 06/27/22 Sex Patient Care team information Care Team Personnel Name: [facility] Position: External Provider - Clinic Member Role: Dialysis Center Address: Address: [address] [place] [address] Name: Sanchez Sanchez Position: External Provider Member Role: Legal Project Manager Name: Elise Borja Position: External Provider Member Role: Car Builder Name: CLAU Castle Tammy Position: Nurse - [facility] Member Role: Broadband Technician Name: Elise Booker Position: External Provider Member Role: Family Medicine Name: Samuel Calhoun Position: External Provider Member Role: Public Health Educator Name: Samuel Calhoun Position: External Provider - Public Health Educator Member Role: Public Health Educator Address: Address: [address] [place] [id number]- Name: Tx Ana Copeland Position: External Provider Member Role: Nuclear Instructor
--- OUTSIDE RECORDS SUMMARY | 2023-08-10 16:15 | XMS_ITS | Clinical Summary ---
Author Name Unknown Organization [facility] Address [address], [place] [address] Phone Care Team Providers Care Shank Archer Name Role Phone Elise Booker MD Primary Care Provider Allergies Active Allergy Reactions Criticality Noted Date Comments Lisinopril Cough 01/14/2023 Medications Medication Sig Dispensed Refills Start Date End Date Status Alcohol Swabs (Alcohol Wipes) 70 % pads USE FOR CHECKING BLOOD SUGARS 2-3 TIMES DAILY OR DIRECTED. Call clinic to schedule follow up appointment. 0 03/07/2017 Active ALPRAZolam (XANAX) 0.5 MG tablet Take 0.5 mg by mouth once daily as needed 0 Active aspirin 81 MG chewable tablet CHEW AND SWALLOW 1 tablet (81 mg) by mouth daily. 0 11/15/2020 Active B Stbavns-Y-Sayjg Acid (Renal) 1 MG capsule Take 1 capsule by mouth 0 Active calcium carbonate (OS-JASBIR) 1250 (500 Ca) MG chewable tablet Chew 1 tablet 0 Active cholecalciferol (VITAMIN D-3) 25 MCG (1000 UT) capsule Take 1,000 Units by mouth in the morning. 0 Active clobetasol (TEMOVATE) 0.05 % ointment Apply topically daily 0 07/10/2021 Active folic acid (FOLVITE) 1 MG tablet Take 1,000 mcg by mouth in the morning. 0 02/13/2016 Active glucose blood test strip Use to test Blood Sugar 4 times daily or as directed. 0 02/16/2018 Active Insulin Pen Needle (B-D ULTRAFINE III SHORT PEN) 31G X 8 MM misc FOR ADMINISTERING INSULIN AT HOME FOR LEVEMIR AND NOVOLOG 0 08/30/2015 Active levETIRAcetam (KEPPRA) 1000 MG tablet Take 1 tablet by mouth every night 0 01/16/2022 Active midodrine (PROAMATINE) 10 MG tablet take 1 tablet (10 mg) by Oral or Feeding Tube route daily as needed (when blood pressure drops low 0 11/10/2020 Active Multiple Vitamin (One-A-Day Essential) tablet Take 1 tablet by mouth in the morning. 0 02/13/2016 Active mycophenolate (CELLCEPT) 500 MG tablet Take 500 mg by mouth in the morning and 500 mg in the evening. 0 02/13/2016 Active Naloxone HCl 4 MG/0.1ML liquid [place] 1 spray (4 mg) into one nostril alternating nostrils once as needed for opioid reversal every 2-3 minutes until assistance arrives. 0 12/22/2019 Active Nutritional Supplements (Nutritional Drink) liquid Take 1 each by mouth in the morning and 1 each in the evening. 0 09/05/2022 Active rosuvastatin (CRESTOR) 10 MG tablet Take 10 mg by mouth in the morning. 0 02/13/2016 Active pantoprazole (PROTONIX) 40 MG EC tablet Take 40 mg by mouth in the morning. 0 05/14/2022 Active oxyCODONE (ROXICODONE) 10 MG immediate release tablet Take 10 mg by mouth 0 09/03/2021 Activ e OLANZapine (ZyPREXA) 5 MG tablet Take 5 mg by mouth every night 0 11/10/2020 Active tacrolimus (PROGRAF) 0.5 MG capsule Take 1 capsule (0.5mg) by mouth twice a day along with four 1mg capsules (total 4.5mg twice a day). 0 01/17/2022 Active tacrolimus (PROGRAF) 1 MG capsule Take 4 capsules (4 mg) by mouth twice a day along with one 0.5mg capsule (total of 4.5mg twice a day). 0 09/17/2021 Active venlafaxine 37.5 MG 24 hr tablet Take 37.5 mg by mouth in the morning. 0 04/04/2022 Active losartan (COZAAR) 25 MG tabletIndications: End stage renal failure on dialysis ([facility]),[facility] (primary) hypertension Take 3 tablets (75 mg total) by mouth 1 (one) time each day 90 tablet 11 03/11/2023 03/10/2024 Active Active Problems Problem Noted Date Diagnosed Date Vulvovaginitis 10/16/2022 Acute gastroenteropathy due to [place] agent Epilepsy, not intractable, without status epilep ticus 07/20/2018 Peritonitis 06/15/2018 End stage renal disease 01/12/2018 Heart transplant status 05/23/2017 Essential (primary) hypertension 05/23/2017 Type 2 diabetes mellitus wit h other diabetic kidney complication 05/23/2017 Anemia in chronic kidney disease 05/23/2017 Secondary hyperparathyroidism of renal origin Social History Tobacco Use Types Packs/Day Years Used Date Smoking Tobacco: Former Cigarettes Q uit: 2010 Smokeless Tobacco: Never Alcohol Use Standard Drinks/Week Comments Not Currently 0 (1 standard drink = 0.6 oz pur e alcohol) Quit:2009 Sex and Gender Information Value Date Recorded Sex Assigned at Not on file Gender Identity Not on file Sexual Orientation Not on file Last Filed Vital Signs Vital Sign Reading Time Taken Comments Blood Pressure 110/71 10/16/2022 9:57 AM CDT Pulse 82 10/16/2022 9:57 AM CDT Temperature 36.6 ??C (97.9 ??F) 10/16/2022 9:57 AM CD T Respiratory Rate - - Oxygen Saturation 97% 10/16/2022 9:57 AM CDT Inhaled Oxygen Concentration - - Weight 93.8 kg (206 lb 12.8 oz) 10/16/2022 9:57 AM CDT Height 167.6 cm (5' 6) 10/16/2022 9:57 AM CDT Body Mass Index 33.38 10/16/2022 9:57 AM CDT Plan of Treatment Health Maintenance Due Date Last Done Comments Diabetic Foot Exam 1976 Ophthalmology Exam 1976 COVID-19 Vaccine (2022-2 4 season) 2023 01/11/2022, 08/14/2020, 07/17/2020 Influenza Vaccine (#1) 2023 , 04/10/2020, 04/10/2020, Additional history exists Pneumococcal PPSV23 Highest Risk Adult Completed 01/19/2018, 11/06/2016, 11/06/2016 Care Teams Shank Archer Relationship Specialty Start Date End Date Elise Booker MD [address] [facility] [address] [place] [address] PCP - General Internal Medicine 10/10/22
--- OUTSIDE RECORDS SUMMARY | 2023-08-10 16:15 | XMS_ITS | Clinical Summary ---
Author Name Unknown Organization [facility] Address [address] [place] [address] Care Team Providers Care Pluck Trimmer Name Role Phone Unavailable Primary Care Provider Unavailabl e Source Comments Patient records contain information from all sites at [facility]. For routine questions regarding patient records, call [phone] during business hours, M-F 8:00 AM - 5:00 PM Central Time. Record requests for emergency care only can be directed to [phone] at any time.[facility] Medications Medication Sig Dispensed Refills Start Date End Date Status ALPRAZolam (XANAX) 0.5 mg tablet Take 0.5 mg by mouth at bedtime as needed. 0 Active aspirin 81 mg chewable tablet CHEW AND SWALLOW 1 tablet (81 mg) by mouth daily. 0 11/15/2020 Active B complex-vitamin C-FA (NEPHROCAPS) 1 mg capsule Take 1 capsule by mouth. 0 Active bisacodyL (DULCOLAX) 5 mg EC tablet TAKE 2 TABLETS AT 4PM TWO DAYS PRIOR TO PROCEDURE. REPEAT DOSE THE NEXT DAY AT 4PM. 0 06/09/2022 Active calcium carbonate (TUMS) 500 mg (200 mg calcium) chewable tablet Chew. 0 Active cholecalciferol (VITAMIN D3) 25 mcg (1,000 Unit) capsule Take 1,000 Units by mouth daily. 0 Active folic acid 1 mg tablet Take 1,000 mcg by mouth. 0 02/13/2016 Active levETIRAcetam (KEPPRA) 1,000 mg tablet Take 1 tablet by mouth at bedtime. 0 04/12/2021 Active levETIRAcetam (KEPPRA) 1,000 mg tablet Take 1,000 mg by mouth at bedtime. 0 06/12/2022 Active lidocaine (LMX) 4 % cream Apply topically. 0 08/25/2020 Active midodrine (PROAMATINE) 10 mg tablet take 1 tablet (10 mg) by Oral or Feeding Tube route daily as needed (when blood pressure drops low 0 11/10/2020 Active mycophenolate (CELLCEPT) 500 mg tablet Take 500 mg by mouth every 12 (twelve) hours. 0 02/13/2016 Active naloxone (NARCAN) 4 mg/actuation nasal spray Administer 4 mg into nostril(s). 0 12/22/2019 Active OLANZapine (ZyPREXA) 5 mg tablet Take 5 mg by mouth. 0 11/10/2020 Active pantoprazole (PROTONIX) 40 mg EC tablet Take 1 tablet (40 mg) by mouth daily. 0 05/14/2022 Active rosuvastatin (CRESTOR) 10 mg tablet Take 1 tablet by mouth daily. 0 02/13/2016 Active tacrolimus (PROGRAF) 0.5 mg capsule Take 1 capsule (0.5mg) by mouth twice a day along with four 1mg capsules (total 4.5mg twice a day). 0 01/17/2022 Active tacrolimus (PROGRAF) 0.5 mg capsule Take 1 capsule (0.5mg) by mouth along with four 1mg capsules (total 4.5mg) in the morning. 0 06/13/2022 Active topiramate (TOPAMAX) 25 mg tablet Take 1 tablet (25 mg) by mouth daily Take after dialysis on dialysis days 0 04/12/2022 Active venlafaxine (EFFEXOR ER) 37.5 mg 24 hr tablet 0 07/01/2022 Active fluconazole (DIFLUCAN) 200 mg tablet Take 1 tablet (200 mg total) by mouth as directed. Take one tablet after dialysis Friday, Fri. Friday for 3 doses only 3 tablet 1 09/23/2022 Active lanolin dknunqf-cv-l.pet- ceres (eucerin) cream Apply 1 Application topically 2 (two) times a day as needed for dry skin. Apply to Lower legs, back and arms. 113 g 11 06/09/2023 06/08/2024 Active loperamide (IMODIUM A-D) 2 mg capsule Take 1 capsule (2 mg total) by mouth 4 (four) times a day as needed for diarrhea. 30 capsule 11 06/09/2023 Active sertraline (ZOLOFT) 25 mg tablet Take 1 tablet (25 mg total) by mouth daily. 90 tablet 3 07/25/2023 07/24/2024 Active Encounters Date Type Department Care Team Description 07/25/2023 Orders Only Division of Nephrology and Hypertension, [facility], in [place], [place] [address] [place] [address] Abel Valle APRN C.N.P., M.S.N. 06/09/2023 Documentation Division of Nephrology and Hypertension in [place], [place] [address] [place] [address] Robert Engel Jr., D.O. 06/09/2023 Orders Only Division of Nephrology and Hypertension in [place], [place] [address] [place] [address] Robert Engel Jr., D.O. from Last 3 Months Social History Tobacco Use Types Packs/Day Years Used Date Smoking Tobacco: Never Assessed Nutrition Answer Date Recorded Nutrition: EVOO Fat Source Unknown 01/14 Nutrition: Servings of Fruits/Vegetables per Day Not on file 01/14/2022 Dental Answer Date Recorded Dental: Regular Dentist Unknown 01/15/20 22 Sex and Gender Information Value Date Recorded Sex Assigned at Not on file Gender Identity Not on file Sexual Orientation Not on file Plan of Treatment Health Maintenance Due Date Last Done Comments CT Colonography 1966 Cologuard 1966 FIT 1966 HIV Screening 1966 Hepatitis C Screening 1966 COVID-19 Vaccine ( season) 2023 01/11/2022, 08/14/2020, 07/17/2020, Additional history exists Depression Screening (Annual PHQ-2) 06/30/2023 Mammogram 09/13/2023 09/12/2022 Cervical Cancer Screening 09/03/2025 09/03/2022 Fasting Glucose for Diabetes Screening 07/12/2026 07/12/2023, 07/11/2023, 07/10/2023, Additional history exists Lipid (Cholesterol) Screening 09/11/2027 09/10/2022, 01/11/2022, 06/21/2021, Additional history exists DTaP,Tdap,and Td Vaccines (3 - Td or Tdap) 02/02/2029 02/02/2019, 11/10/2008, 11/28/1998, Additional history exists Pneumococcal vaccine (0-64 years) (4 of 4 - PPSV23 or PCV20) 10/31/2031 01/19/2018, 01/19/2018, 11/06/2016, Additional history exists Colonoscopy 06/13/2032 06/13/2022 Colorectal Cancer Screening 06/13/2032 Zoster Vaccines Completed 07/23/2019, 02/02/2019 Hepatitis B Vaccines Completed 07/24/2022, 03/26/2022, 02/28/2022, Additional history exists Influenza Vaccine Completed 04/18/2023, , 04/24/2022, Additional history exists HPV Vaccines Aged Out No longer eligi ble based on patient's age to complete this topic
--- OUTSIDE RECORDS SUMMARY | 2023-08-10 16:15 | XMS_ITS | Referral Summary ---
Author Name Unknown Organization [facility] Address [address] [place] [address] Care Team Providers Care Director Of Religious Life Name Role Phone Unavailable Primary Care Provider Unavailabl e Source Comments Patient records contain information from all sites at [facility]. For routine questions regarding patient records, call [phone] during business hours, M-F 8:00 AM - 5:00 PM Central Time. Record requests for emergency care only can be directed to [phone] at any time.[facility] Encounters Date Type Department Care Team Description 07/25/2023 Orders Only Division of Nephrology and Hypertension, [facility], in [place], [place] [address] [place] [address] Abel Valle, MARITZA, C.N.P., M.S.N. 06/09/2023 Documentation Division of Nephrology and Hypertension in [place], [place] [address] [place] [address] Robert Engel Jr., D.O. 06/09/2023 Orders Only Division of Nephrology and Hypertension in [place], [place] [address] [place] [phone] Robert Engel Jr., D.O. from Last 3 Months Medications Medication Sig Dispensed Refills Start Date [...] as directed. Take one tablet after dialysis Kam, Fri. Friday for 3 doses only 3 tablet 1 09/23/2022 Active lanolin qmucxaa-dt-v.pet- ceres (eucerin) cream Apply 1 Application topically [...] daily. 90 tablet 3 07/25/2023 07/24/2024 Active Social History Tobacco Use Types Packs/Day Years [...] Orientation Not on file Plan of Treatment Not on file
--- OUTSIDE RECORDS SUMMARY | 2023-08-10 16:15 | XMS_ITS | Clinical Summary ---
Author Name Unknown Organization [facility] Address [place], [place] [address] Care Team Providers Care Wood Piler Name Role Phone Elise Booker MD Primary Care Provider Allergies Active Allergy Reactions Criticality Noted Date Comments Adhesive Tape-Silicones Contact Dermatitis,Other - Describe In Comment Field 06/04/2013 Causes bruising and blisters Causes bruising and blisters Aripiprazole Insomnia 07/30/2013 Other reaction(s): Insomnia Bupropion Hydrobromide Itching 02/01/2013 Eszopiclone Headache 05/06/2012 Migraines Lidocaine Contact Dermatitis,Other - Describe In Comment Field 10/10/2014 Lidoderm patch causes bruising and blisters Lidoderm patch causes bruising and blisters Oxycodone-Acetaminophe n Itching 12/07/2012 Patient reporting is reporting OXYCONTINit is the long acting one Oxycodone Itching 09/17/2021 Adhesive Contact Dermatitis 10/10/2014 Causes bruising and blisters Bupropion Itching 10/10/2014 Zolpidem Sleep Disturbances 01/15/2018 Sleep walk Medications Medication Sig Dispensed Refills Start Date End Date Status ferrous sulfate 325 mg delayed release tablet Take 1 tablet by mouth 2 times daily with meals. 0 03/31/2014 Active blood-glucose meterIndications:Typ e 2 diabetes mellitus without complication (HC) Dispense item covered by pt ins. 250.00 NIDDM type II - Test 3 time/day. Multi[ple daily insulin injections 1 Device 0 10/28/2014 Active BD INSULIN PEN NEEDLE UF 31 gauge x 5/16Indications:Typ e 2 diabetes mellitus without complication (HC) FOR ADMINISTERING INSULIN AT HOME FOR LEVEMIR AND NOVOLOG 100 Each 0 08/30/2015 Active folic acid 1 mg tablet Take 1 tablet by mouth once daily. 0 02/13/2016 Active miconazole nitrate powder 2 % powder Apply topically to affected area(s) 2 times daily. 0 02/13/2016 Active multivitamin (MVI) tablet Take 1 tablet by mouth once daily. 0 02/13/2016 Active mycophenolate (CELLCEPT) 500 mg tablet Take 1 tablet by mouth every 12 hours. 0 02/13/2016 Active rosuvastatin (CRESTOR) 10 mg tablet Take 1 tablet by mouth at bedtime. 0 02/13/2016 Active venlafaxine (EFFEXOR) 75 mg tablet Take 1 tablet by mouth 3 times daily. 0 02/13/2016 Active blood sugar diagnostic (ONETOUCH ULTRA TEST) stripIndications:Typ e 2 diabetes mellitus with complication, with long-term current use of insulin (HC) Dispense item covered by pt ins. E11.9 NIDDM type II - Test 1-2 times/day. Reason: Hypoglycemia 50 Strip 12 05/06/2016 Active alcohol swabs (B-D SINGLE USE SWABS REGULAR)Indications: Diabetes mellitus without complication (HC) USE FOR CHECKING BLOOD SUGARS 200 Each 3 03/07/2017 Active CPAP Equipment ordered: RESMED CPAP Mask type: Nasal Settings: 7 CM H2O : CPAP 0 Active Midodrine HCl 10 mg tablet Take 10 mg by mouth one time if needed. for low BP 0 11/10/2020 Active aspirin chewable 81 mg chewable tablet Chew 81 mg by mouth once daily. 0 11/15/2020 Active OLANzapine (ZYPREXA) 5 mg tablet Take 5 mg by mouth at bedtime. 0 11/10/2020 Active tacrolimus (Prograf) 1 mg capsule Take 4 Capsules (4 mg) by mouth every 12 hours. 0 09/17/2021 Active ALPRAZolam (XANAX) 0.5 mg tablet Take 0.5 mg by mouth at bedtime if needed. 0 Active b complex-vitamin c-folic acid 1 mg (NEPHROCAPS) 1 mg capsule Take 1 Capsule by mouth. 0 Active oxyCODONE 10 mg tablet Take 10 mg by mouth every 6 hours if needed. 0 09/03/2021 Active naloxone (NARCAN) 4 mg/actuation nasal spray Inhale 4 mg into affected nostril(s). 0 12/22/2019 Active lidocaine-transparen t dressing 4 % dressing Apply topically to affected area(s). Apple topically once as needed for mild pain 0 08/25/2020 Active levETIRAcetam (KEPPRA) 1,000 mg tablet Take 1 Tablet by mouth at bedtime. 0 04/12/2021 Active calcium carbonate (TUMS) 200 mg calcium (500 mg) chewable tablet Chew 1 Tablet by mouth 2 times daily with meals. 0 Active terconazole (TERAZOL-7) 0.4 % vaginal cream Insert 1 Applicator into the vagina at bedtime. 0 07/10/2021 Active ofloxacin 0.3 % ophthalmic (OCUFLOX) 0.3 % ophthalmic solutionIndications: Acute bacterial conjunctivitis of both eyes Place 2 Drops into both eyes 4 times daily. For 3-5 days. 5 mL 0 09/17/2021 Active Active Problems Problem Noted Date Diagnosed Date Heart replaced by transplant 10/05/2021 Heart transplant status 12/18/2017 Acute on chronic kidney failure 12/18/2017 Hyperlipemia 05/01/2015 Generalized anxiety disorder 04/20/2015 Chronic back pain 08/01/2013 Idiopathic cardiomyopathy 07/05/2013 DJD (degenerative joint disease) of knee 012 Symptomatic menopausal or female climacteric sta rosalino 11/20/2010 Pain medication agreement 08/28/2010 Overview: Completed with Dr. Brenton Francis [phone] Coronary atherosclerosis of [place] coronary rosa ry 12/25/2009 CHF (congestive heart failure) 12/25/2009 Myalgia and myositis, unspecified 12/05/2009 Major depressive disorder, recurrent episode, mo derate 12/05/2009 HTN (hypertension) 10/19/2009 GRETA (obstructive sleep apnea) 10/19/2009 DM type 2 (diabetes mellitus, type 2) 10/19/2009 Resolved Problems Problem Noted Date Diagnosed Date Resolved Date Depression 10/19/2009 12/05/2009 Routine health maintenance 10/19/2009 0 10/10/2014 Overview: Last Pap Smear 12/2008 Clinical Breast Exam 12/2008 Cholesterol 04/2009 Encounters Date Type Department Care Team Description 07/10/2023 Patient Outreach [facility] [address] [place] [phone] Rosa Lux [facility] (Ended active [facility] episode 06/29/23-change in delegate) 07/10/2023 Patient Outreach [facility] [address] [place] [phone] Jocelyne Dale [facility] (UTF SENT ) 07/10/2023 Patient Outreach [facility] [address] [place] [address]235 Jennifer Leon RN [facility] (UTF sent to [facility]) 06/11/2023 Patient Outreach [facility] [address] [place] [address] Ana Huston [facility] ([id number] change of address faxed to [facility] ) 06/09/2023 Patient Outreach [facility] [address] [place] [phone] Mana Juarez [facility] (Administrative Activity - ) 06/05/2023 Patient Outreach [facility] [address] [place] [phone] Mana Juarez [facility] (Welcome Call) from Last 3 Months Immunizations Name Administration Dates Next Due COVID-19 vaccine (Moderna 100mcg/0.5mL) JUAN LUIS DE LA FUENTE 08/14/2020,07/17/2020 Hepatitis B (Adult) 11/26/2013 Hepatitis B, Unspecified 11/26/2013 Influenza RIV4 (Age 18+ Year s) PRESERV FREE 04/10/2020 Influenza, IIV3 (Age 6-35 mos) 04/02/2011 Influenza, IIV3 (Age >=3 years) 05/09/20 16,04/08/2012,04/02/2011,2009,05/11/2008,06/11/2006,04/24/2005 Influenza, IIV4 04/23/2021,,07/23/2019,2016,04/28/2015,03/31/2014,06/20/2013 Pneumococcal Poly,23-Valent (Pneumovax) 01/19/2018,11/06/2016,04/28/2015,2008 Pneumococcal conj 13-Valent (Prevnar 13) 11/06/2016 Pneumococcal conj 7-Valent ( Prevnar 7) 11/10/2008 Pneumococcal, Unspecified 01/19/2018,11/06/2016 Td (Age >=7 Years) 11/28/1998,06/19/1994 Td, Preservative Free (age > = 7 Years) 11/28/1998,06/19/1994 Tdap 02/02/2019,11/10/2008 Tuberculin (PPD) 07/04/2021,07/19/2020, 0 Zoster (Shingrix-RZV, recombinant) 07/23/2019, Family History Medical History Relation Name Comments Diabetes Mother Hypertension Mother Hyperlipidemia Sister Relation Name Status Comments Mother Sister Social History Tobacco Use Types Packs/Day Years Used Date Smoking Tobacco: Former Cigarettes Q uit: 05/30/2013 Smokeless Tobacco: Never Tobacco Cessation:Ready to Q uit: Yes; Counseling Given: Yes Alcohol Use Standard Drinks/Week Comments No 0 (1 standard drink = 0.6 oz pur e alcohol) Social Connections Answer Date Recorded Frequency of Communication with Friends and Fami ly Not on file 09/28/2022 Financial Resource Strain Answer Date R ecorded Difficulty of Paying Living Expenses 3 09/17/2021 Difficulty of Paying Living Expenses Not on file 09/17/2021 Food Insecurity Answer Date Recorded Worried About Running Out of Food in the Last Ye ar 1 09/17/2021 Transportation Needs Answer Date Record ed Lack of Transportation (Medical) 1 09/17/2021 Housing Stability Answer Date Recorded Unable to Pay for Housing in the Last Year 1 09/17/2021 Sex and Gender Information Value Date Recorded Sex Assigned at Not on file Gender Identity Not on file Sexual Orientation Not on file Obstetrics History Last Filed Vital Signs Vital Sign Reading Time Taken Comments Blood Pressure 92/65 09/17/2021 2:40 PM CDT Pulse 103 09/17/2021 2:40 PM CDT Temperature 37.2 ??C (98.9 ??F) 09/17/2021 2:40 PM CD T Respiratory Rate 18 09/17/2021 2:40 PM CDT Oxygen Saturation 93% 09/17/2021 2:40 PM CDT Inhaled Oxygen Concentration - - Weight 99.3 kg (219 lb) 12/10/2017 3:00 PM CDT Height 167.6 cm (5' 6) 12/10/2017 3:00 PM CDT Body Mass Index 35.35 12/10/2017 3:00 PM CDT Plan of Treatment Health Maintenance Due Date Last Done Comments HIV for age 15-65 1981 Hepatitis C screening for ag e 18-79 1984 Mammogram for age 45-75 12/17/2014 12/18/19 14, 02/26/2011, 11/01/2006 Depression screening for age 12+ 08/25/2016 08/25/19 16 BMI (ht and wt on same day) for age 18+ 02/08/2017 02/09/2016, 08/25/2015 Pap test for age 21-65 03/30/2017 4, 11/14/2011, 07/18/2010, Additional history exists Lipids for age 45-75 11/26/2018 11/26/2013, 07/16/2012, 04/08/2012, Additional history exists Colonoscopy through age 75 01/15/2021 01/15/2011 COVID-19 vaccine series ( - 2022- season) 2023 01/11/2022, 08/14/2020, 07/17/2020 Influenza for age 50-64 02/28/2023 04/23/20 21, 04/10/2020, 04/10/2020, Additional history exists Tetanus booster 02/02/2029 02/02/2019, 10/28, 11/28/1998, Additional history exists Pneumococcal series for age 6-64 (4 of 4 - PPSV23 or PCV20) 10/31/2031 01/19/2018, 01/19/2018, 11/06/2016, Additional history exists Tdap Completed 02/02/2019, 11/10/2008 Zoster (shingles) series for age 50+ Completed 07/23/2019, 02/02/2019 Care Teams Wood Piler Relationship Specialty Start Date End Date Elise Booker MD PCP - General Obstetrics and Gynecology 04/30/17
--- OUTSIDE RECORDS SUMMARY | 2023-08-10 16:15 | XMS_ITS | Continuity of Care Document ---
Author Name Unknown Organization [facility] Address [address] [place] [address]- Encounter 06/27/23 - 07/24/23 [facility] [address] [place] [address]- Allergies, Adverse Reactions, Alerts Substance Reaction Severity [...] and Recorded Vaccine Date Status Refusal Reason influenza virus vaccine, inactivated 1 04/18/23 Re corded influenza virus vaccine, inactivated 04/10/20 Massimo rded influenza virus vaccine, inactivated 2 07/23/19 Re corded influenza virus vaccine, inactivated 3 04/04/17 Re corded influenza virus vaccine, inactivated 4 04/28/15 Re corded influenza virus vaccine, inactivated 5 03/31/14 Re corded influenza virus vaccine, inactivated 6 06/20/13 Re corded influenza virus vaccine, inactivated 7 04/02/11 Re corded SARS-CoV-2 (COVID-19) [facility]1273 08/14/20 Record ed SARS-CoV-2 (COVID-19) [facility] Ad26 vacc 07/17/20 R ecorded zoster vaccine, inactivated 8 07/23/19 Recorded zoster vaccine, inactivated 9 02/02/19 Recorded Tdap 10 02/02/19 Recorded Tdap 11/10/08 Recorded pneumococcal (PPS23) 01/19/18 Recorded pneumococcal (PPS23) 11/06/16 Recorded pneumococcal (PPS23) 11 04/28/15 Recorded pneumococcal (PCV13) 12 11/06/16 Recorded influenza 13 05/09/16 Recorded influenza 04/08/12 Recorded influenza 04/02/11 Recorded influenza 04/10/10 Recorded influenza 05/11/08 Recorded influenza 06/11/06 Recorded influenza 04/24/05 Recorded Hep B 11/26/13 Recorded pneumococcal (PCV7) 11/10/08 Recorded tetanus 11/28/98 Recorded tetanus 06/19/94 Recorded 1Result Comment: [facility] 2Result Comment: Route: Intramuscular Proposal Director: [employer] 3Result Comment: Route: Intramuscular Proposal Director: [employer] 4Result Comment: Route: Intramuscular Proposal Director: [employer] 5Result Comment: Route: Intramuscular Proposal Director: [employer] 6Result Comment: Route: Intramuscular Proposal Director: [employer] 7Result Comment: Route: Intramuscular Proposal Director: [employer] 8Result Comment: Route: Intramuscular Proposal Director: [employer] 9Result Comment: Route: Intramuscular Proposal Director: [employer] 10Result Comment: Route: Intramuscular Proposal Director: [employer] 11Result Comment: Route: Intramuscular Proposal Director: [employer] 12Result Comment: Route: Intramuscular Proposal Director: [employer] 13Result Comment: Route: Intramuscular Proposal Director: [employer] Medications acetaminophen 325 mg oral tablet Oral, 650 Unknown, 1 Refill(s), Take 2 tablets (650 mg) by mouth every 4 hours as needed for other (For optimal non-opioid multimodal pain management to improve pain control.), 0 Refill(s) Start Date: 07/07/23 Status: Ordered amoxicillin-clavulanate 250 mg-125 mg oral tablet Oral, BID, 1 Unknown, 1 Refill(s), Take 1 tablet by mouth 2 times daily for 10 doses, 0 Refill(s) Start Date: 07/16/23 Status: Ordered aspirin 81 mg oral capsule 0 Refill(s) Start Date: 10/22/21 Status: Ordered azaTHIOprine 50 mg oral tablet 60 unknown unit, Take 2 tablets (100 mg) by mouth daily*, 0 Refill(s) Start Date: 02/12/23 Status: Ordered calcium carbonate 500 mg (200 mg elemental calcium) oral tablet, chewable 500 mg = 1 tab, Chewed, BID, 0 Refill(s) Start Date: 02/12/23 Status: Ordered folic acid 1 mg oral tablet 0 Refill(s) Start Date: 10/22/21 Status: Ordered hydrocortisone 2.5% topical ointment Topical, 5 Refill(s), Apply topically At Bedtime, 0 Refill(s) Start Date: 07/07/23 Status: Ordered ketoconazole 2% topical cream Topical, 5 Refill(s), Apply topically daily, 0 Refill(s) Start Date: 07/07/23 Status: Ordered levETIRAcetam 1000 mg oral tablet 90 unknown unit, Take 1 tablet (1,000 mg) by mouth At Bedtime For more refills,schedule an appointment at [phone].*, 0 Refill(s) Start Date: 02/12/23 Status: Ordered lidocaine 0.5% topical gel 0 Refill(s) Start Date: 10/22/21 Status: Ordered loperamide 2 mg oral capsule Oral, QID, 2 Unknown, 12 Refill(s), Take 1 capsule (2 mg total) by mouth 4 (four) times a day as needed for diarrhea., 0 Refill(s) Start Date: 07/07/23 Status: Ordered losartan 25 mg oral tablet Oral, 25 Unknown, 1 Refill(s), Take 25 mg by mouth every evening, 0 Refill(s) Start Date: 07/07/23 Status: Ordered Multiple Vitamins oral capsule 0 Refill(s) Start Date: 10/22/21 Status: Ordered Narcan 4 mg/0.1 mL nasal spray 1 Refill(s), [place] 1 spray (4 mg) into one nostril alternating nostrils once as needed for opioid reversal every 2-3 minutes until assistance arrives., 0 Refill(s) Start Date: 07/07/23 Status: Ordered oxyCODONE 10 mg oral tablet 10 mg, 0 Refill(s) Start Date: 10/22/21 Status: Ordered pantoprazole 40 mg oral delayed release tablet 90 unknown unit, Take 1 tablet (40 mg) by mouth daily.*, 0 Refill(s) Start Date: 02/12/23 Status: Ordered polyethylene glycol 3350 Oral, 17 Unknown, 12 Refill(s), Take 17 g by mouth daily, 0 Refill(s) Start Date: 07/07/23 Status: Ordered rosuvastatin 10 mg oral tablet 90 unknown unit, Take 1 tablet (10 mg) by mouth daily*, 0 Refill(s) Start Date: 02/12/23 Status: Ordered tacrolimus 1 mg oral capsule 5 caps, every 12 hr, 0 Refill(s) Start Date: 02/12/23 Status: Ordered venlafaxine 37.5 mg oral tablet, [...] to end stage renal disease Confirmed Active Diastolic heart failure Confirmed Active End stage renal failure on dialysis Confirmed 03/01/20 Active Epilepsy Confirmed Active H/O: heart recipient Confirmed 07/15/18 Active 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) Confirmed Active History of anxiety state Confirmed Active History of cerebrovascular accident Confirmed Active Hyperlipidemia Confirmed 03/29/13 Active 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 Confirmed Active Hypertension in chronic kidney disease due to type II diabetes mellitus Confirmed Active Immunodeficiency Confirmed Active Immunodeficiency due to conditions classified elsewhere Confirmed Active Obstructive sleep apnea syndrome Confirmed 03/29/13 Active Peripheral neuropathic pain Confirmed 05/21/16 Active Recurrent major depressive episodes, moderate Confirmed Active Seizure Confirmed 07/03/18 Active Procedures Procedure Date Related Diagnosis Body Site Status Arteriovenous fistula operation 1 06/29/18 Completed Heart transplant 2016 Complete d ICD - Internal cardiac defib rillator procedure 2 02/02/12 Completed LVAD - Implantation of left ventricular assist device 3 Comp leted 1Creattion of LUE AVF 2placement 32 to 3 years Prior to heart transplant recipient per patient report Social History Social History Type Response Smoking Status Former smoker, quit more than 30 days ago entered on: 06/27/22 Sex Patient Care team information Care Team Personnel Name: Sanchez Sanchez Position: External Provider Member Role: Cable Armorer Name: Elise Borja Position: External Provider Member Role: Hoisting Engine Operator Name: CLAU Castle Tammy Position: Nurse - [facility] Member Role: Residential Living Assistant Name: Elise Booker Position: External Provider Member Role: Family Medicine Name: [facility] Aurora Schwartz Position: External Provider - Clinic Member Role: Dialysis Center Address: Address: [address] [place] [phone]- Name: Antonio Han Position: External Provider Member Role: Micro Photographer Name: Tx Ana Copeland Position: External Provider Member Role: Retail Service Technician Care Team Related Persons Name: Gaurav Bullock Name: Tg Arizmendi
--- OUTSIDE RECORDS SUMMARY | 2023-08-10 16:15 | XMS_ITS ---
Author Name Unknown Organization [facility] Address [address] [place] [address] Care Team Providers Care Military Technology Manager Name Role Phone Unavailable Unavailable Unavailable Surgery Details Not on file Complications Check Surgery Details section. Procedure Estimated Blood Loss Check Surgery Details section. Procedure Findings Check Surgery Details section. Procedure Specimens Taken Check Surgery Details section.
--- OUTSIDE RECORDS SUMMARY | 2023-08-10 16:15 | XMS_ITS | Encounter Summary ---
Author Name Unknown Organization [facility] Address [address] [place] [address] Care Team Providers Care Geospatial Scientist Name Role Phone Unavailable Primary Care Provider Unavailabl e Encounter Details Date Type Department Care Team (Late st Contact Info) Description 09/23/2022 Documentation Division of Nephrology and Hypertension in [place], [place] [address] [place] [address] Robert Engel Jr., D.O. [address] [place] [address] Social History Tobacco Use Types Packs/Day Years [...] on file documented as of this encounter Progress Notes * Robert Engel Jr., D.O. - 09/23/2022 8:51 AM CDT Care coordination-dialysis note: She continues to be troubled by profound itching and discomfort in her perineal area. She was prescribed a different agent by her [facility] associate financial representative team, this was far too expensive. Clotrimazole cream was recommended which has failed to impact this in the past. She is done well previously with Diflucan, I am going to prescribe 1 tablet following dialysis for the next 3 sessions, this does interact with her anti rejection drugs, we will monitor carefully. She is going to be moving dialysis centers as of Friday due to her moving. documented in this encounter Plan of Treatment Not on file documented as of this encounter Visit Diagnoses Not on filedocumented in this encounter
--- OUTSIDE RECORDS SUMMARY | 2023-08-10 16:15 | XMS_ITS | Encounter Summary ---
Author Name Unknown Organization [facility] Address [address] [place] [address] Care Team Providers Care Pastry Baker Name Role Phone Unavailable Primary Care Provider Unavailabl e Encounter Details Date Type Department Care Team (Late st Contact Info) Description 06/09/2023 Documentation Division of Nephrology and Hypertension in [place], [place] [address] [place] [phone] Robert Engel Jr., Alaina.O. [address] [place] [address] Social History Tobacco Use Types Packs/Day Years [...] Notes * Robert Engel Jr., D.O. - 06/09/2023 9:52 AM CST Dialysis visit-care coordination: She [facility] at the [facility] dialysis unit. She is a 57-year-old female with a history of end- stage renal disease on the background of diabetes mellitus. She additionally has a nonischemic cardiomyopathy status post cardiac transplant in 2017. She is on mycophenolate 500 mg twice daily, and her tacrolimus dose was recently adjusted to 3.5 mg twice daily. She is a right upper lobe lung lesion which is going to require resection, this is set for the the month. She is moved back to [facility] to be in her own space in [place]. Her end-stage renal disease was treated initially with incenter dialysis, then peritoneal dialysis which was ultimately abandoned and she [facility]. Overall she is feeling relatively well but is struggling with overall itching, and also struggles with intermittent severe diarrhea. We are resuming her previous orders from the dialysis unit, and will closely monitor her target weight, to optimize her filling volumes. I have sent through a prescription today for Eucerin cream, or its generic equivalent to be used upto 3 times daily as necessary for the pruritus and extremely dry skin. We will continue to follow the transplant team's recommendation regards her cardiac transplant and immunosuppression. Regarding her diarrhea, I have prescribed some Imodium for her to use as necessary, 2 mg up to q.i.d. if necessary. We will monitor her hemoglobin, secondary renal hyperparathyroidism, nutritional issues as part of her usual dialysis regimen. We have been hopeful to get her approved for kidney transplant, as we had cared for her in the past. This is still being determined, and her right lung lesion issue will need to be dealt with prior to her approval. She is a full code, and [facility] is her renal replacement modalityof choice. She uses a left upper extremity fistula which functions well. OTYPE SEWER documented in this encounter Plan of Treatment Not on file documented as of this encounter Visit Diagnoses Not on filedocumented in this encounter
--- OUTSIDE RECORDS SUMMARY | 2023-08-10 16:15 | XMS_ITS | Encounter Summary ---
Author Name Unknown Organization [facility] Address [address] [place] [address] Care Team Providers Care Cook Helper Pastry Name Role Phone Unavailable Primary Care Provider Unavailabl e Encounter Details Date Type Department Care Team (Late st Contact Info) Description 09/23/2022 Orders Only Division of Nephrology and Hypertension in [place], [place] [address] [place] [phone] Robert Engel Jr., D.O. [address] [place] [address] Social History Tobacco Use Types Packs/Day Years [...]
--- OUTSIDE RECORDS SUMMARY | 2023-08-10 16:15 | XMS_ITS | Encounter Summary ---
Author Name Unknown Organization [facility] Address [address] [place] [address] Care Team Providers Care Lucerne Farmer Name Role Phone Unavailable Primary Care Provider Unavailabl e Encounter Details Date Type Department Care Team (Late st Contact Info) Description 07/25/2023 Orders Only Division of Nephrology and Hypertension, [facility], in [place], [place] [address] [place] [phone] Abel Valle, MARITZA, C.N.P., M.S.N. [address] [place] [phone] Social History Tobacco Use Types Packs/Day Years [...]
--- OUTSIDE RECORDS SUMMARY | 2023-08-10 16:16 | XMS_ITS | Encounter Summary ---
Author Name Unknown Organization [facility] Address [address] [place] [address] Phone Care Team Providers Care Machine Gunner Name Role Phone Unavailable Primary Care Provider Unavailabl e Encounter Details Date Type Department Care Team Description 10/08/2022 Orders Only [facility] [address] [facility] [address] [place], [place] [phone] Chapis Donaldson PA [address] [facility] [address] [facility] [address] [place] [address] Essential (primary) hypertension (Primary Dx); End stage renal failure on dialysis ([facility]) Social History Tobacco Use Types Packs/Day Years Used Date Smoking Tobacco: Never Assessed Sex and Gender Information Value Date Recorded Sex Assigned at Not on file Gender Identity Not on file Sexual Orientation Not on file documented as of this encounter Plan of Treatment Not on file documented as of this encounter Visit Diagnoses Diagnosis Essential (primary) hypertension- Primary End stage renal failure on dialysis (CMS-HCC) documented in this encounter
--- OUTSIDE RECORDS SUMMARY | 2023-08-10 16:16 | XMS_ITS | Encounter Summary ---
Author Name Unknown Organization [facility] Address [address] [address] Phone Care Team Providers Care Heat And Vent Aircraft Mechanic Name Role Phone Elise Booker MD Primary Care Provider Reason for Visit * Reason Onset Date Comments Need for PA 10/16/2022 Encounter Details Date Type Department Care Team Description 10/16/2022 Telephone [email or web address] [address] [facility] [address] [place], [place] [address] Deanna Bear RN Need for PA Social History Tobacco Use Types Packs/Day Years [...] on file documented as of this encounter Miscellaneous Notes * Telephone Encounter - Deanna Bear RN - 10/16/2022 2:56 PM CDT Ibrexafungerp was ordered by Dr Goff and Cub called to say that is was not covered by her Insurance. PA was completed and was expedited and we should have an answer in 24 hours. ID # [id number] documented in this encounter Plan of Treatment Not on file documented as of this encounter Visit Diagnoses Not on filedocumented in this encounter Care Teams Heat And Vent Aircraft Mechanic Relationship Specialty Start Date End Date Elise Booker MD [address] [facility] [address] [place] [address] PCP - General Internal Medicine 10/10/22 documented as of this encounter
--- OUTSIDE RECORDS SUMMARY | 2023-08-10 16:16 | XMS_ITS | Encounter Summary ---
Author Name Unknown Organization [facility] Address [address] [place] [address] Phone Care Team Providers Care University Demonstrator Name Role Phone Elise Booker MD Primary Care Provider Reason for Visit * Reason Onset Date Comments Brexafemme 11/01/2022 Encounter Details Date Type Department Care Team Description 11/01/2022 Telephone [facility] [address] [facility] [address] [place], [place] [address] Deanna Bear, CLAU Neilfe Social History Tobacco Use Types Packs/Day Years [...] Telephone Encounter - Deanna Bear RN - 11/01/2022 10:30 AM CDT PA was denied by [facility]. I did contact the Company about getting medication at decreased mejía and was told they have a co-pay card, but nothing else to offer. Andie is not eligible due to she is on Medicare. I have started an appeal wilth [facility] which was marked urgent. Andie was notified that I am still working on getting it approved. documented in this encounter Plan of Treatment Not on file documented as of this encounter Visit Diagnoses Not on filedocumented in this encounter Care Teams University Demonstrator Relationship Specialty Start Date End Date Elise Booker MD 9 [facility] [address] 4 [place] [address] PCP - General Internal Medicine 10/10/22 documented as of this encounter
--- OUTSIDE RECORDS SUMMARY | 2023-08-10 16:16 | XMS_ITS ---
Author Name Unknown Organization Unknown Encounters Encounter Type Performer Location Encounter Date Encoun ter Notes virtual - - [id number] 0:00 no notes Patient Care team information Name Category Status Period Participants - - Proposed period not known - - - period not known -
--- OUTSIDE RECORDS SUMMARY | 2023-08-10 16:16 | XMS_ITS | Encounter Summary ---
Author Name Unknown Organization [facility] Address [address], [place] [address] Phone Care Team Providers Care Lineman Apprentice Name Role Phone Elise Booker MD Primary Care Provider Encounter Details Date Type Department Care Team Description 01/21/2023 Refill [facility] [address] [place], [place] [address] Chapis Donaldson PA [address] [facility] [address] [place], [place] [address] Essential (primary) hypertension; End stage renal failure on dialysis ([facility]) Social History Tobacco Use Types Packs/Day Years [...] this encounter Visit Diagnoses Diagnosis Essential (primary) hypertension End stage renal failure on dialysis ([facility]) documented in this encounter Care Teams Lineman Apprentice Relationship Specialty Start Date End Date Elise Booker MD [address] [facility] [address] [place], [place] [address] PCP - General Internal Medicine 10/10/22 documented as of this encounter
--- OUTSIDE RECORDS SUMMARY | 2023-08-10 16:16 | XMS_ITS | Encounter Summary ---
Author Name Unknown Organization [facility] Address [address], [place] [address] Phone Care Team Providers Care Irish Moss Gatherer Name Role Phone Elise Booker MD Primary Care Provider Reason for Visit * Reason Onset Date Comments Med Refill 01/23/2023 Encounter Details Date Type Department Care Team Description 01/23/2023 Refill [facility] [address] [facility] [address] [place], [place] [address] Shruthi Garsia, RN Social History Tobacco Use Types Packs/Day Years [...] on filedocumented in this encounter Care Teams Irish Moss Gatherer Relationship Specialty Start Date End Date Elise Booker MD 9 [facility] [address] [place] [address] PCP - General Internal Medicine 10/10/22 documented as of this encounter
--- OUTSIDE RECORDS SUMMARY | 2023-08-10 16:16 | XMS_ITS | Encounter Summary ---
Author Name Unknown Organization [facility] Address [address] [place] [address] Phone Care Team Providers Care Reed Or Wind Instrument Repairer Name Role Phone Elise Booker MD Primary Care Provider Encounter Details Date Type Department Care Team Description 12/03/2022 Refill [facility] [address] [employer] [address] [place] [address] Chapis Donaldson PA [address] [facility] [address] [place], [place] [id number] Essential (primary) hypertension; End stage renal failure on dialysis ([facility]) Social History Tobacco Use Types Packs/Day Years [...] encounter Miscellaneous Notes * Telephone Encounter - SAULO Schneider - 12/03/2022 12:39 PM CDTSummary: Hypertension Increase Lisinopril to 20mg daily. SAULO Schneider documented in this encounter Plan of Treatment Not on file documented as of this encounter Visit Diagnoses Diagnosis Essential (primary) hypertension End stage renal failure on dialysis ([facility]) documented in this encounter Care Teams Reed Or Wind Instrument Repairer Relationship Specialty Start Date End Date Elise Booker MD 9 [facility] [address] 4 [place] [address] PCP - General Internal Medicine 10/10/22 documented as of this encounter
--- OUTSIDE RECORDS SUMMARY | 2023-08-10 16:16 | XMS_ITS | Encounter Summary ---
Author Name Unknown Organization [facility] Address [address], [place] [address] Phone Care Team Providers Care Phone Manager Name Role Phone Elise Booker MD Primary Care Provider Encounter Details Date Type Department Care Team Description 03/11/2023 Refill [facility] [address] [place], [place] [address] Chapis Donaldson PA [address] [facility] [address] [place], [place] [address] End stage renal failure on dialysis ([facility]); Essential (primary) hypertension Social History Tobacco Use Types Packs/Day Years [...] as of this encounter Visit Diagnoses Diagnosis End stage renal failure on dialysis ([facility]) Essential (primary) hypertension documented in this encounter Care Teams Phone Manager Relationship Specialty Start Date End Date Elise Booker MD [address] [facility] [address] [place], [place] [address] PCP - General Internal Medicine 10/10/22 documented as of this encounter
--- OUTSIDE RECORDS SUMMARY | 2023-08-10 16:16 | XMS_ITS | Encounter Summary ---
Author Name Unknown Organization [facility] Address [address] [address] Phone Care Team Providers Care Binding Dyer Name Role Phone Elise Booker MD Primary Care Provider Encounter Details Date Type Department Care Team Description 01/14/2023 Orders Only [facility] [address] [place], [place] [address] Chapis Donaldson PA [address] [facility] [address] [place], [place] [phone] Essential (primary) hypertension (Primary Dx); End stage [...] Primary End stage renal failure on dialysis ([facility]) documented in this encounter Care Teams Binding Dyer Relationship Specialty Start Date End Date Elise Booker MD 9 [facility] [address] [place] [address] PCP - General Internal Medicine 10/10/22 documented as of this encounter
--- OUTSIDE RECORDS SUMMARY | 2023-08-10 16:16 | XMS_ITS | Encounter Summary ---
Author Name Unknown Organization [facility] Address [address] [place] [address] Phone Care Team Providers Care Master Machinist Name Role Phone Elise Booker MD Primary Care Provider Encounter Details Date Type Department Care Team Description 12/05/2022 Telephone [facility] [address] [facility] [address] [place], [place] [address] Deanna Bear RN Social History Tobacco Use Types Packs/Day [...] Telephone Encounter - Deanna Bear RN - 12/05/2022 2:59 PM CDT Message left with Andie that I was unable to find a way to cover the Brexafemme. Asked her to call with questions. * Telephone Encounter - Deanna Bear RN - 12/05/2022 2:39 PM CDT Andie is denied but not because the medication is not covered for her dx, it is denied because the company that makes Brexafemme only make brexafemme and so the company is not part of Medicare formulary. Brexafemme does not use anything but copay cares and since she has a government insurance she is not eligible for the copay cards. [facility] does not have any programs for or financial services consultant for any one on a government insuance. documented in this encounter Plan of Treatment Not on file documented as of this encounter Visit Diagnoses Not on filedocumented in this encounter Care Teams Master Machinist Relationship Specialty Start Date End Date Elise Booker MD [address] [place] [address] [address] [place] [address] PCP - General Internal Medicine 10/10/22 documented as of this encounter
--- OUTSIDE RECORDS SUMMARY | 2023-08-10 16:16 | XMS_ITS | Encounter Summary ---
Author Name Unknown Organization [facility] Address [address] [address] Phone Care Team Providers Care Offline Cutter Name Role Phone Elise Booker MD Primary Care Provider Encounter Details Date Type Department Care Team Description 10/16/2022 9:30 AM MDT Office Visit [facility] [address] [employer] [address] [place], [place] [address] Kalin Goff MD [address] [place], [place] [address] Vulvovaginitis (Primary Dx) Social History Tobacco Use Types Packs/Day Years Used Date Smoking Tobacco: Former Cigarettes Q uit: 2011 Smokeless Tobacco: Never Alcohol Use Standard Drinks/Week Comments Not Currently 0 (1 standard drink = 0.6 oz pur e alcohol) Quit:2009 Sex and Gender Information Value Date Recorded Sex Assigned at Not on file Gender Identity Not on file Sexual Orientation Not on file documented as of this encounter Last Filed Vital Signs Vital Sign Reading [...] Mass Index 33.38 10/16/2022 9:57 AM CDT documented in this encounter Progress Notes * Kalin Goff MD - 10/16/2022 9:30 AM CDT Images from the original note were not included. Primary care physician : Elise Booker MD, MD Referring Physician : No care steam service inspector to display Date of consult : 10/16/22 Subjective History of Present Illness: Andie Shaffer is a 56 y.o. female with PMH of hearth transplant. She is on chronic immunosuppressives. Her current immunosuppressives are Mycophenolate and Tacrolimus with plans of transition to Azathioprine She has been dealing with symptoms of severe vulvovaginitis for 3 yrs now. She has been on oral fluconazole and multiple topical antifungals many times for the past 2.5 yrs She says symptoms improve but then come back again and again. She was recently seen by garden implement mechanic and was prescribed Iberexafungrep but because of cost pt was unable toobtain it. Review of Systems Constitutional: Negative. HENT: Negative. Eyes: Negative. Respiratory: Negative. Cardiovascular: Negative. Gastrointestinal: Negative. Endocrine: Negative. Genitourinary: Positive for vaginal discharge and vaginal pain. Musculoskeletal: Negative. Skin: Negative. Allergic/Immunologic: Negative. Neurological: Negative. Hematological: Negative. Psychiatric/Behavioral: Negative. Current Outpatient Medications Medication Sig Dispense Refill ??? Alcohol Swabs (Alcohol Wipes) 70 % pads USE FOR CHECKING BLOOD SUGARS 2-3 TIMES DAILY OR DIRECTED. Call clinic to schedule follow up appointment. ??? ALPRAZolam (XANAX) 0.5 MG tablet Take 0.5 mg by mouth once daily as needed ??? aspirin 81 MG chewable tablet CHEW AND SWALLOW 1 tablet (81 mg) by mouth daily. ??? B Qbgoamu-C-Nwojq Acid (Renal) 1 MG capsule Take 1 capsule by mouth ??? calcium carbonate (OS-JASBIR) 1250 (500 Ca) MG chewable tablet Chew 1 tablet ??? cholecalciferol (VITAMIN D-3) 25 MCG (1000 UT) capsule Take 1,000 Units by mouth in the morning. ??? clobetasol (TEMOVATE) 0.05 % ointment Apply topically daily ??? folic acid (FOLVITE) 1 MG tablet Take 1,000 mcg by mouth in the morning. ??? glucose blood test strip Use to test Blood Sugar 4 times daily or as directed. ??? Insulin Pen Needle (B-D ULTRAFINE III SHORT PEN) 31G X 8 MM [facility] FOR ADMINISTERING INSULIN AT HOME FOR LEVEMIR AND NOVOLOG ??? levETIRAcetam (KEPPRA) 1000 MG tablet Take 1 tablet by mouth every night ??? lisinopril (PRINIVIL) 10 MG tablet Take 1 tablet (10 mg total) by mouth 1 (one) time each day 30 tablet 1 ??? midodrine (PROAMATINE) 10 MG tablet take 1 tablet (10 mg) by Oral or Feeding Tube route daily as needed (when blood pressure drops low ??? Multiple Vitamin (One-A-Day Essential) tablet Take 1 tablet by mouth in the morning. ??? mycophenolate (CELLCEPT) 500 MG tablet Take 500 mg by mouth in the morning and 500 mg in the evening. ??? Naloxone HCl 4 MG/0.1ML liquid [place] 1 spray (4 mg) into one nostril alternating nostrils once as needed for opioid reversal every 2-3 minutes until assistance arrives. ??? Nutritional Supplements (Nutritional Drink) liquid Take 1 each by mouth in the morning and 1 each in the evening. ??? OLANZapine (ZyPREXA) 5 MG tablet Take 5 mg by mouth every night ??? oxyCODONE (ROXICODONE) 10 MG immediate release tablet Take 10 mg by mouth ??? pantoprazole (PROTONIX) 40 MG EC tablet Take 40 mg by mouth in the morning. ??? rosuvastatin (CRESTOR) 10 MG tablet Take 10 mg by mouth in the morning. ??? tacrolimus (PROGRAF) 0.5 MG capsule Take 1 capsule (0.5mg) by mouth twice a day along with [id number] capsules (total 4.5mg twice a day). ??? tacrolimus (PROGRAF) 1 MG capsule Take 4 capsules (4 mg) by mouth twice a day along with one 0.5mg capsule (total of 4.5mg twice a day). ??? venlafaxine 37.5 MG 24 hr tablet Take 37.5 mg by mouth in the morning. ??? Ibrexafungerp Citrate 150 MG tablet Take 300 mg by mouth in the morning and 300 mg in the evening. Do all this for 1 day. 4 tablet 0 No current facility-administered medications for this visit. Past Medical History: Diagnosis Date ??? Anemia ??? Anxiety state ??? Cerebral artery occlusion, unspecified, with cerebral infarction (CMS-HCC) ??? Chronic kidney disease ??? Congestive heart failure (CMS-HCC) ??? Depressive disorder Past Surgical History: Procedure Laterality Date ??? CARDIAC SURGERY ??? CHOLECYSTECTOMY Not on File No family history on file. Social History Tobacco Use ??? Smoking status: Former Types: Cigarettes Quit date: 2010 Years since quittin.3 ??? Smokeless tobacco: Never Vaping Use ??? Vaping Use: Never used Substance Use Topics ??? Alcohol use: Not Currently Comment: Quit:2009 ??? Drug use: Not Currently Objective BP 110/71 (BP Location: Right arm, Patient Position: Sitting, BP Cuff Size: Adult) Pulse 82 Temp 97.9 ??F (36.6 ??C) (Temporal) Ht 5' 6 (1.676 m) Wt 206 lb 12.8 oz (93.8 kg) SpO2 97% BMI33.38 kg/m?? BSA 2.09 m?? Synopsis No data to display Physical Exam Constitutional: Appearance: She is well-developed and well-nourished. HENT: Head: Normocephalic and atraumatic. Eyes: Conjunctiva/sclera: Conjunctivae normal. Pulmonary: Effort: Pulmonary effort is normal. Genitourinary: Comments: Deferred, recent exam in the garden implement mechanic clinic noted to be normal Musculoskeletal: General: Normal range of motion. Cervical back: Normal range of motion. Neurological: Mental Status: She is alert and oriented to person, place, and time. Psychiatric: Mood and Affect: Mood and affect normal. Assessment/Plan Diagnoses and all orders for this visit: Vulvovaginitis Other orders - Ibrexafungerp Citrate 150 MG tablet; Take 300 mg by mouth in the morning and 300 mg in the evening. Do all this for 1 day. Recommend pt to be referred to transplant infectious disease clinic at [facility] I try to to see if the Ibrexafungrep needs prior auth or can be obtained from tree tapping laborer at a lower mejía. Pt is currently taking fluconazole if we are able to obtain ibrexafungrep she will stop fluconazoleto the take the ibrexafungrep. If her symptoms come back I recommend doing vaginal yeast cultures off antifungals. No orders of the defined types were placed in this encounter. KALIN GOFF MD documented in this encounter Plan of Treatment Not on file documented as of this encounter Visit Diagnoses Diagnosis Vulvovaginitis- Primary documented in this encounter Care Teams Offline Cutter Relationship Specialty Start Date End Date Elise Booker MD [address] [facility] [address] [place] [address] PCP - General Internal Medicine 10/10/22 documented as of this encounter
--- OUTSIDE RECORDS SUMMARY | 2023-08-10 16:16 | XMS_ITS | Encounter Summary ---
Author Name Unknown Organization [facility] Address [address], [place] [address] Phone Care Team Providers Care Charge Attendant Name Role Phone Elise Booker MD Primary Care Provider Encounter Details Date Type Department Care Team Description 01/28/2023 Refill [facility] [address] [place], [place] [address] Chapis Donaldson PA [address] [facility] [address] [place], [place] [phone] Essential (primary) hypertension; End stage renal failure on dialysis ([facility]) Social History Tobacco Use Types Packs/Day Years [...] hypertension End stage renal failure on dialysis ([facility]) documented in this encounter Care Teams Charge Attendant Relationship Specialty Start Date End Date Elise Booker MD 9[address] [facility] [address] [place], [place] [address] PCP - General Internal Medicine 10/10/22 documented as of this encounter
--- OUTSIDE RECORDS SUMMARY | 2023-08-10 16:16 | XMS_ITS | Encounter Summary ---
Author Name Unknown Organization [facility] Address [address], [place] [address] Phone Care Team Providers Care Husbandry Person Name Role Phone Elise Booker MD Primary Care Provider Encounter Details Date Type Department Care Team Description 02/04/2023 Refill [facility] [address] [place], [place] [address] Chapis Donaldson PA [address] [facility] [address] [place], [place] [address] Essential (primary) hypertension; End stage renal failure on dialysis ([facility]) Social History Tobacco Use Types Packs/Day Years [...] hypertension End stage renal failure on dialysis ([facility]) documented in this encounter Care Teams Husbandry Person Relationship Specialty Start Date End Date Elise Booker MD [address] [facility] [address] [place], [place] [address] PCP - General Internal Medicine 10/10/22 documented as of this encounter
[2023-08-10 16:40] LABS: Eosinophils Absolute Auto 0.16 K/uL (0.00-0.50); Eosinophils Percent Auto 2.1 % (0.0-7.0); Hematocrit 30.6 % (33.0-51.0); Hemoglobin* 9.6 gm/dL (12.0-16.0); Lymphocytes Percent Auto 10.7 % (20-44); Mean Corpuscular HGB Conc 31 gm/dL (32-36); Mean Corpuscular Hemoglobin 34 pg (26-34); Mean Corpuscular Volume 108 fL (80-100); Monocytes Percent Auto 5.7 % (0.0-11.0); Neutrophils Percent Auto 81.5 % (42.0-72.0); Platelet Count* 217 K/uL (140-440); RDW Coefficient of Variation % 15.2 % (11.5-15.5); Red Blood Count 2.83 m/uL (4.00-5.20); White Blood Count* 7.75 K/uL (4.50-11.00)
[2023-08-10 16:42] LABS: Slide Review Reflex No
[2023-08-10] MEDS: MORPHINE 4 MG/ML INJ IVP ×2 (16:44→20:45)
--- NOTE | 2023-08-10 16:56 | ED_ITS ---
HPI - SOB/Dyspnea General Date Seen: 08/10/23 Chief Complaint: Shortness of Breath/Dyspnea Stated Complaint: trouble breathing Time Seen by Provider: 08/10/23 15:19 Source: patient Mode of arrival: ambulatory Limitations: no limitations History of Present Illness HPI Narrative: Patient is a 57-year-old female presenting to the emergency department for shortness of breath. She has a history of dialysis, recent lung biopsy, heart transplant. Patient states she is on dialysis for ever since her transplant and 2016. She missed dialysis on Friday due to right-sided pain that has been going on ever since she had a lung biopsy done at [facility] 10 days ago. She has been feeling increased shortness of breath all we can since she missed dialysis. She states she was surprised by this because usually she states they do not need to take much fluid off of her during dialysis. She does not feel like her legs are swollen compared to normal. Denies fevers, chills, chest pain, weakness, n umbness, abdominal pain, headache, vision changes, diarrhea, constipation. She states she thinks she might need chronic oxygen at home as whenever she ambulates at baseline she feels very short of breath. Currently low she is feeling short of breath even at rest Related Data Home Medications Medication Instructions Recorded Confirmed aspirin 81 mg chewable tablet 1 tab PO DAILY 07/09/23 07/09/23 folic acid 1 mg tablet 1 mg PO DAILY 07/09/23 07/09/23 levetiracetam 1,000 mg tablet 1,000 mg PO QPM 07/09/23 07/09/23 losartan 25 mg tablet (Cozaar) 25 mg PO DAILY 07/09/23 07/09/23 mycophenolate mofetil 500 mg tablet 500 mg PO BID 07/09/23 07/09/23 oxycodone 10 mg tablet 10 mg PO Q6H PRN chronic pain 07/09/23 07/09/23 pantoprazole 40 mg tablet,delayed 40 mg PO DAILY 07/09/23 07/09/23 release rosuvastatin 10 mg tablet 10 mg PO DAILY 07/09/23 07/09/23 tacrolimus 0.5 mg capsule, mg PO 07/09/23 immediate-release Allergies Allergy/AdvReac Type Severity Reaction Status Date / [facility] Allergy Intermediate Verified 08/10/23 18:07 Review of Systems Status of ROS: Reports: 10 or more systems reviewed and unremarkable except as noted in History and below PFSH PFS Social History Smoking Status: Former smoker Do you use any of these nicotine containing products: None Second hand tobacco smoke exposure: Yes How often do you have a drink containing alcohol: never How often do you have six or more drinks on one occasion: Never AUDIT-C Alcohol total score: 0 Non-prescribed substance use: denies use service: No Exam Narrative: Exam Narrative: Const: Well-nourished, Well-developed, in mild distress Eyes: PERRL, no conjunctival injection, and symmetrical lids HENT: Atraumatic external nose and ears. Moist mucous membranes. Neck: Symmetric, trachea midline, No thyromegaly. CVS: Tachycardia, No murmurs or gallops. Peripheral pulses 2+ and equal in all extremities RESP: Tachypneic with increased respiratory effort. Clear to auscultation bilaterally. GI: Nontender/Nondistended, No rebound or guarding. MSK:Extremities w/o deformity, Normal Active ROM Skin: Warm, Dry. No rashes or lesions. Neuro: Normal Muscle tone, No focal neurological deficits. Psych: Awake, Alert, & Oriented x3. Appropriate mood and affect. Const: Vital Signs, click to edit/add: Vital Signs - 24 hr 08/10/23 15:28 08/10/23 15:43 08/10/23 15:45 Temperature 97.3 F L Pulse Rate 105 H 104 H Pulse Rate [Pulse Oximeter] 109 H Respiratory Rate 28 H Blood Pressure Blood Pressure [Ri ght Upper Arm] 165/102 H Pulse Oximetry 82 L 100 100 Oxygen Delivery Me thod Room Air Oxygen Flow Rate 08/10/23 16:00 08/10/23 16:02 08/10/23 16:15 Temperature Pulse Rate 104 H 103 H 111 H Pulse Rate [Pulse Oximeter] Respiratory Rate Blood Pressure 165/105 H Blood Pressure [Ri ght Upper Arm] Pulse Oximetry 100 100 96 Oxygen Delivery Me thod Oxygen Flow Rate 08/10/23 16:30 08/10/23 16:45 08/10/23 17:00 Temperature Pulse Rate 103 H 108 H 101 H Pulse Rate [Pulse Oximeter] Respiratory Rate Blood Pressure Blood Pressure [Ri ght Upper Arm] Pulse Oximetry 100 100 100 Oxygen Delivery Me thod Oxygen Flow Rate 08/10/23 17:15 08/10/23 17:20 08/10/23 17:30 Temperature Pulse Rate 102 H 103 H Pulse Rate [Pulse Oximeter] Respiratory Rate Blood Pressure Blood Pressure [Ri ght Upper Arm] Pulse Oximetry 100 98 100 Oxygen Delivery Me thod Nasal Cannula Oxygen Flow Rate 2 08/10/23 17:56 08/10/23 18:00 08/10/23 18:15 Temperature Pulse Rate 111 H 108 H 104 H Pulse Rate [Pulse Oximeter] Respiratory Rate Blood Pressure Blood Pressure [Ri ght Upper Arm] Pulse Oximetry 97 99 100 Oxygen Delivery Me thod Oxygen Flow Rate 08/10/23 18:30 08/10/23 18:45 08/10/23 19:00 Temperature Pulse Rate 104 H 102 H 101 H Pulse Rate [Pulse Oximeter] Respiratory Rate Blood Pressure Blood Pressure [Ri ght Upper Arm] Pulse Oximetry 100 100 100 Oxygen Delivery Me thod Oxygen Flow Rate 08/10/23 19:15 08/10/23 19:30 08/10/23 19:45 Temperature Pulse Rate 103 H 103 H 103 H Pulse Rate [Pulse Oximeter] Respiratory Rate Blood Pressure Blood Pressure [Ri ght Upper Arm] Pulse Oximetry 100 100 100 Oxygen Delivery Me thod Oxygen Flow Rate 08/10/23 20:00 08/10/23 20:15 08/10/23 20:30 Temperature Pulse Rate 101 H 107 H 107 H Pulse Rate [Pulse Oximeter] Respiratory Rate Blood Pressure Blood Pressure [Ri ght Upper Arm] Pulse Oximetry 100 100 98 Oxygen Delivery Me thod Oxygen Flow Rate Course Vital Signs Vital signs: Initial Vital Signs Temperature 97.3 F L 08/10/23 15:28 Temperature Source Temporal Artery Scan 08/10/23 15:28 Pulse Rate 109 H 08/10/23 15:28 Pulse Rhythm Regular 08/10/23 15:28 Respiratory Rate 28 H 08/10/23 15:28 Blood Pressure 165/102 H 08/10/23 15:28 Blood Pressure Mean 123 H 08/10/23 15:28 Blood Pressure Position Supine 08/10/23 15:28 Pulse Oximetry 82 L 08/10/23 15:28 Oxygen Delivery Method Room Air 02/11/24 15:28 Vital Signs Temperature 97.3 F L 08/10/23 15:28 Pulse Rate 109 H 08/10/23 15:28 Respiratory Rate 28 H 08/10/23 15:28 Blood Pressure 165/102 H 08/10/23 15:28 Pulse Oximetry 82 L 08/10/23 15:28 Oxygen Delivery Method Room Air 08/10/23 15:28 Temperature 97.3 F L 08/10/23 15:28 Pulse Rate 107 H 08/10/23 20:30 Respiratory Rate 28 H 08/10/23 15:28 Blood Pressure 165/105 H 08/10/23 16:02 Pulse Oximetry 98 08/10/23 20:30 Oxygen Delivery Method Nasal Cannula 08/10/23 17:20 Oxygen Flow Rate 2 08/10/23 17:20 Medications Administered Medications: Discontinued Medications Generic Name Dose Route Start Last Admin Trade Name Freq PRN Reason Stop Dose Admin Morphine Sulfate 4 mg 08/10/23 16:13 08/10/23 16:44 Morphine 4 Mg/Ml Inj IVP 08/10/23 16:14 4 mg ONCE ONE Administration Morphine Sulfate 4 mg 08/10/23 20:36 08/10/23 20:45 Morphine 4 Mg/Ml Inj IVP 08/10/23 20:37 4 mg ONCE ONE Administration MDM - SOB/Dyspnea MDM Narrative Medical decision making narrative: Patient is a 57-year-old female presenting to emergency department for shortness of breath. She has a history of heart transplant, end-stage renal disease without any urine production and recent lung biopsy and pleural effusion. She has been having worsening shortness breath the past few days and missed dialysis on Friday. She was hypoxic on room air and fever short of breath so oxygen was given and she was feeling better after that. States tachycardic and tachypneic but does not have a fever. Is unsure was causes shortness of breath at this time but differential includes ACS, infection, perfusion confusion, pulmonary embolism, pneumothorax. Seems unlikely to be aortic dissection concerns she looks otherwise well with no pain. CBC, CMP, magnesium, troponin, COVID/flu/RSV, D-dimer all ordered. Likely due CT of the chest so will wait to decide if he will be CTA or not pending D-dimer. Cbc and CMP showed no obvious abnormalities. Her potassium is 5.3 urine is not that high. As expected her creatinine is elevated at 12.6. Her hemoglobin is actually better than last time she was here at 9.6. D-dimer is elevated of 1.04 so we will order a CTA of the chest. She is anuric so I am not concerned about this worsening in kidney function. COVID/flu/RSV test was negative. We tried to take her of oxygen and she again felt very short of breath and started to desat. CTA of the chest shows no signs of pulmonary embolism. There is resolution of her right hydropneumothorax. There is still small bilateral pleural effusions. There is ground-glass opacities worse the lower lobes that could be avid or edema versus infectious. There is no obvious signs of bacterial infection at this time this could be viral in nature. I do not think is necessary start antibiotics at this time. Blood cultures and lactate ordered. Lactate within normal limits and she does not appear to be septic. Since she still requiring oxygen we will look to transfer her as she is on dialysis. We 1st attempted [facility]. I spoke to the hospitalist for [facility] and they initially did not have beds but ended up accepted the patient as an ED to ED transfer. I spoke to Dr. Johnson of the emergency department to accepted the patient. Patient is agreeable to this plan. Will be transferred to the ED via ambulance Lab Data Labs: Lab Results 08/10/23 08/10/23 08/10/23 Range/Units 16:20 16:32 19:57 WBC 7.75 (4.50-11.00) K/uL RBC 2.83 L (4.00-5.20) m/uL Hgb 9.6 L (12.0-16.0) gm/dL Hct 30.6 L (33.0-51.0) % MCV 108 H (80-100) fL MCH 34 (26-34) pg MCHC 31 L (32-36) gm/dL RDW Coeff of Regine 15.2 (11.5-15.5) % Plt Count 217 (140-440) K/uL Neut % (Auto) 81.5 H (42.0-72.0) % Lymph % (Auto) 10.7 L (20-44) % Dickinson % (Auto) 5.7 (0.0-11.0) % Eos % (Auto) 2.1 (0.0-7.0) % Baso % (Auto) 0.0 (0.0-3.0) % Neut # (Auto) 6.30 (1.7-7.0) K/uL Lymph # (Auto) 0.80 L (0.90-2.90) K/uL Dickinson # (Auto) 0.40 (0.00-0.90) K/UL Eos # (Auto) 0.16 (0.00-0.50) K/uL Baso # (Auto) 0.00 (0.00-0.30) K/uL Abs Immat Gran (auto) 0.00 (0.00-0.30) K/uL Imm/Tot Granulo (auto) 0.0 % D-Dimer Quant (PE/DVT) 1.04 H (0.00-0.50) ug/ml Sodium 141 (135-149) mmol/L Potassium 5.3 H (3.6-5.1) mmol/L Chloride 107 (96-114) mmol/L Carbon Dioxide 19 L (20-32) mmol/L Anion Gap 15 (7-15) mEq/L BUN 44 H (7-30) mg/dL Creatinine 12.6 H (0.5-1.5) mg/dL Estimated Creat Clear 4.67 Estimated GFR 3 ml/min Glucose 105 (60-115) mg/dL Lactate 0.7 (0.5-1.9) mmol/L Calcium 10.0 (8.4-10.6) mg/dL Magnesium 2.0 (1.5-2.6) mg/dL Total Bilirubin 0.9 (0.1-1.5) mg/dL AST 23 (12-35) U/L ALT 10 (4-35) U/L Alkaline Phosphatase 113 (40-150) U/L Troponin I 0.04 (0.01-0.04) ng/mL Total Protein 9.0 H (6.0-8.3) g/dL Albumin 4.9 (3.3-5.0) g/dL SARS-CoV-2 (PCR) Negative SARS-CoV-2 (Negative) Influenza Type A (PCR) Negative PCR FLU A (Negative) Influenza Type B (PCR) Negative PCR FLU B (Negative) RSV (PCR) Negative PCR RSV (Negative) Lab Acknowledgement Test Added 08/10/23 Range/Units 20:38 WBC (4.50-11.00) K/uL RBC (4.00-5.20) m/uL Hgb (12.0-16.0) gm/dL Hct (33.0-51.0) % MCV (80-100) fL MCH (26-34) pg MCHC (32-36) gm/dL RDW Coeff of Regine (11.5-15.5) % Plt Count (140-440) K/uL Neut % (Auto) (42.0-72.0) % Lymph % (Auto) (20-44) % Dickinson % (Auto) (0.0-11.0) % Eos % (Auto) (0.0-7.0) % Baso % (Auto) (0.0-3.0) % Neut # (Auto) (1.7-7.0) K/uL Lymph # (Auto) (0.90-2.90) K/uL Dickinson # (Auto) (0.00-0.90) K/UL Eos # (Auto) (0.00-0.50) K/uL Baso # (Auto) (0.00-0.30) K/uL Abs Immat Gran (auto) (0.00-0.30) K/uL Imm/Tot Granulo (auto) % D-Dimer Quant (PE/DVT) (0.00-0.50) ug/ml Sodium (135-149) mmol/L Potassium (3.6-5.1) mmol/L Chloride (96-114) mmol/L Carbon Dioxide (20-32) mmol/L Anion Gap (7-15) mEq/L BUN (7-30) mg/dL Creatinine (0.5-1.5) mg/dL Estimated Creat Clear Estimated GFR ml/min Glucose (60-115) mg/dL Lactate (0.5-1.9) mmol/L Calcium (8.4-10.6) mg/dL Magnesium (1.5-2.6) mg/dL Total Bilirubin (0.1-1.5) mg/dL AST (12-35) U/L ALT (4-35) U/L Alkaline Phosphatase (40-150) U/L Troponin I (0.01-0.04) ng/mL Total Protein (6.0-8.3) g/dL Albumin (3.3-5.0) g/dL SARS-CoV-2 (PCR) (Negative) Influenza Type A (PCR) (Negative) Influenza Type B (PCR) (Negative) RSV (PCR) (Negative) Lab Acknowledgement Test Added Imaging Data CTA chest: Radiologist's impression: 1. No evidence of pulmonary embolism. 2. Interval resolution of pneumothorax component of the right hydro pneumothorax. Persistent small bilateral pleural effusions. 3. Decrease in size of the tubular structure involving the right lung and near complete resolution of right pulmonary nodules favoring postsurgical/inflammatory etiology. 4. Patchy ground-glass opacities most pronounced within the lung bases may reflect alveolar edema versus infectious/inflammatory process. 5. Status post cardiac transplant. Please note that all CT scans at this facility use dose modulation, iterative reconstruction, and/or weight-based dosing when appropriate to reduce radiation dose to as low as reasonably achievable. Dictated by Tigist Beasley MD @ 08/10/2023 7:08:03 PM ECG Data Attestation: I personally reviewed and interpreted this ECG as follows: Prior ECG tracings: available for review Interpretation: Sinus tachycardia with rate 170 beats per minute, normal intervals, left axis deviation, normal intervals, no ST or T-wave abnormalities. Appears similar previous EKGs on file Discharge Plan Discharge Clinical Impression: Hypoxia Pneumonia Qualifiers: Pneumonia type: due to unspecified organism Laterality: bilateral Lung location: unspecified part of lung Qualified Code(s): J18.9 - Pneumonia, unspecified organism Patient Disposition: Xfer Other Discharge Location: [facility] Condition: Stable Prescriptions: No Action aspirin 81 mg tablet,chewable 1 tab PO DAILY folic acid 1 mg tablet 1 mg PO DAILY tacrolimus 0.5 mg capsule PO levetiracetam 1,000 mg tablet 1,000 mg PO QPM losartan [Cozaar] 25 mg tablet 25 mg PO DAILY mycophenolate mofetil 500 mg tablet 500 mg PO BID pantoprazole 40 mg tablet,delayed release (DR/EC) 40 mg PO DAILY rosuvastatin 10 mg tablet 10 mg PO DAILY oxycodone 10 mg tablet 10 mg PO Q6H PRN (Reason: chronic pain) Follow Up/Referrals: Provider,Not a Local [Primary Care Provider] - Stand Alone Forms: [facility] Info Instructions
[2023-08-10 16:57] LABS: Albumin* 4.9 g/dL (3.3-5.0); Chloride* 107 mmol/L (96-114); Potassium* 5.3 mmol/L (3.6-5.1); Sodium* 141 mmol/L (135-149)
[2023-08-10 17:00] LABS: Alanine Aminotransferase* 10 U/L (4-35); Alkaline Phosphatase* 113 U/L (40-150); Anion Gap 15 mEq/L (7-15); Aspartate Amino Transferase* 23 U/L (12-35); Bilirubin Total* 0.9 mg/dL (0.1-1.5); Blood Urea Nitrogen* 44 mg/dL (7-30); Carbon Dioxide* 19 mmol/L (20-32); Creatinine* 12.6 mg/dL (0.5-1.5); Est. Creatinine Clearance* 4.67; Estimated Glomerular Filt Rate 3 ml/min; Glucose* 105 mg/dL (60-115)
[2023-08-10 17:05] LABS: D Dimer Quantitative* 1.04 ug/ml (0.00-0.50)
[2023-08-10 17:08] LABS: PCR FLU A Negative PCR FLU A (Negative); PCR FLU B Negative PCR FLU B (Negative); PCR RSV Negative PCR RSV (Negative); SARS PCR* Negative SARS-CoV-2 (Negative)
--- NOTE | 2023-08-10 17:09 | CRLHL7_ITS ---
For Patients: As a result of the Century Cures Act, medical imaging exams and procedure reports are released immediately into your electronic medical record. You may view this report before your referring provider. If you have questions, please contact your health care provider. INDICATION: Shortness of breath. TECHNIQUE: CT chest PE was acquired with ninety-five cc Isovue 370 IV contrast. COMPARISON: CT 07/09/2023. FINDINGS: Heart and vasculature: Postoperative changes following heart transplant with suture material at the main pulmonary artery and ascending thoracic aorta. The heart is normal in size. No pericardial effusion. Mild atherosclerotic aortic calcifications. Pulmonary artery opacification is adequate. No pulmonary embolism is detected. Lungs and pleura: Resolution the pneumothorax component of the previously identified right hydro pneumothorax. There is persistent small bilateral pleural effusions. Decrease in size of the elongated soft tissue density lesion previously seen extending from the right upper lobe through the minor fissure into the right lower lobe, now measuring up to 8 mm in axial dimension, previously 24 mm. The previously identified right upper lobe pulmonary nodules have near completely resolved as well, likely postoperative versus inflammatory/infectious. Patchy ground-glass opacities in the lung bases and right middle lobe. Linear scarring in the right lung apex and bilateral lower lobes is unchanged. Lymph nodes/mediastinum: Similar top-normal size of several mediastinal lymph nodes. Chest wall: Post median sternotomy. Upper abdomen: Partially visualized fluid attenuation probable cyst involving the left kidney. Post cholecystectomy. Bones: Unchanged compression deformity of T5. IMPRESSION: 1. No evidence of pulmonary embolism. 2. Interval resolution of pneumothorax component of the right hydro pneumothorax. Persistent small bilateral pleural effusions. 3. Decrease in size of the tubular structure involving the right lung and near complete resolution of right pulmonary nodules favoring postsurgical/inflammatory etiology. 4. Patchy ground-glass opacities most pronounced within the lung bases may reflect alveolar edema versus infectious/inflammatory process. 5. Status post cardiac transplant. Please note that all CT scans at this facility use dose modulation, iterative reconstruction, and/or weight-based dosing when appropriate to reduce radiation dose to as low as reasonably achievable. Dictated by Tigist Beasley MD @ 08/10/2023 7:08:03 PM (Electronically Signed)
[2023-08-10 17:12] LABS: Troponin I* 0.04 ng/mL (0.01-0.04)
[2023-08-10 20:10] LABS: Lactate* 0.7 mmol/L (0.5-1.9)
[2023-08-10 21:01] LABS: Procalcitonin* 0.93 ng/mL (<0.50)
--- NOTE | 2023-08-10 21:13 | ED.NURSE ---
Report called to [facility] ER at [phone]. Report given to CLAU Vazquez. Dispatch called and should arrive shortly.
--- NOTE | 2023-08-10 21:18 | ED.NURSE ---
Daughter, Patti, called and updated on patient's condition and transfer per patient request.
[2023-08-10 21:21] LABS: NT Pro B Type NatriureticPept* 44600 pg/mL
== END 2023-08-10 21:40 | disposition other institution (70) ==
PROVIDERS: Emergency Provider Student in an Organized Health Care Education/Training Program
DX: J18.9 Pneumonia, unspecified organism (principal); R09.02 Hypoxemia
CPT/HCPCS: 36415; 71275; 80053; 83605; 83735; 83880; 84145; 84484; 85025; 85379; 87040; 87631; 93005; 96374; 96376; 99284; 99285; J2270; Q9967

== ENCOUNTER 2023-08-10 21:20 | Outpatient (CLI) | payer MEDICARE, MEDICAID, SELFPAY | END 2023-08-10 21:21 | disposition home or self-care (01) | LOC: AMB 08-12 18:18 | PROVIDERS: Visit Provider Family Medicine | DX: J18.9 Pneumonia, unspecified organism (principal); R06.02 Shortness of breath | CPT/HCPCS: A0425; A0426 ==

== ENCOUNTER 2023-12-19 06:13 | Outpatient (CLI) | payer MEDICARE, MEDICAID, SELFPAY ==
--- OUTSIDE RECORDS SUMMARY | 2023-12-20 07:10 | XMS_ITS | Clinical Summary ---
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 for low BP 11/10/2020 Active aspirin chewable 81 mg chewable tablet Chew 81 mg by mouth once daily. 11/15/2020 Active OLANzapine (ZYPREXA) 5 mg tablet Take 5 mg by mouth at bedtime. 11/10/2020 Active tacrolimus (Prograf) 1 mg capsule Take 4 Capsules (4 mg) by mouth every 12 hours. 0 09/17/2021 Active ALPRAZolam (XANAX) 0.5 mg tablet Take 0.5 mg by mouth at bedtime if needed. Active b complex-vitamin c-folic acid 1 mg (NEPHROCAPS) 1 mg capsule Take 1 Capsule by mouth. Active oxyCODONE 10 mg tablet Take 10 mg by mouth every 6 hours if needed. 09/03/2021 Active naloxone (NARCAN) 4 mg/actuation nasal spray Inhale 4 mg into affected nostril(s). 12/22/2019 Active lidocaine-transparen t dressing 4 % dressing Apply topically to affected area(s). Apple topically once as needed for mild pain 08/25/2020 Active levETIRAcetam (KEPPRA) 1,000 mg tablet Take 1 Tablet by mouth at bedtime. 04/12/2021 Active calcium carbonate (TUMS) 200 mg calcium (500 mg) chewable tablet Chew 1 Tablet by mouth 2 times daily with meals. Active terconazole (TERAZOL-7) 0.4 % vaginal cream Insert 1 Applicator into the vagina at bedtime. 07/10/2021 Active ofloxacin 0.3 % ophthalmic (OCUFLOX) 0.3 % ophthalmic solutionIndications: Acute bacterial conjunctivitis of both eyes Place 2 Drops into both eyes 4 times daily. For 3-5 days. 5 mL 09/17/2021 Active Active Problems Problem Noted Date Diagnosed Date Heart replaced by transplant 10/05/2021 Heart transplant status 12/18/2017 Acute on chronic kidney failure 12/18/2017 Hyperlipemia 05/01/2015 Generalized anxiety disorder 04/20/2015 Chronic back pain 08/01/2013 Idiopathic cardiomyopathy 07/05/2013 DJD (degenerative joint disease) of knee 012 Symptomatic menopausal or female climacteric sta rosalino 11/20/2010 Pain medication agreement 08/28/2010 Overview: Completed with Dr. Brenton Francis [phone] Coronary atherosclerosis of [place] coronary rosa ry 12/25/2009 CHF (congestive heart [...] 12/2008 Clinical Breast Exam 12/2008 Cholesterol 04/2009 Immunizations Name Administration Dates Next Due COVID-19 vaccine (Moderna 100mcg/0.5mL) MD LEISAV 08/14/2020,07/17/2020 Hepatitis B (Adult) 11/26/2013 Hepatitis B, Unspecified 11/26/2013 Influenza RIV4 (Age 18+ Year s) PRESERV FREE 04/10/2020 Influenza, IIV3 (Age 6-35 mos) 04/02/2011 Influenza, IIV3 (Age >=3 years) 05/09/20 16,04/08/2012,04/02/2011,2009,05/11/2008,06/11/2006,04/24/2005 Influenza, IIV4 04/23/2021, 0,07/23/2019,2016,04/28/2015,03/31/2014,06/20/2013 Pneumococcal Poly,23-Valent (Pneumovax) 01/19/2018,11/06/2016,04/28/2015,2008 Pneumococcal conj 13-Valent [...] 76 01/15/2021 01/15/2011 COVID-19 vaccine series ( season) 2023 01/11/2022, 08/14/2020, 07/17/2020 Influenza for age 50-64 02/29/2024 04/23/20 21, 04/10/2020, 04/10/2020, Additional history exists Tetanus booster 02/02/2029 02/02/2019, 10/28, 11/28/1998, Additional history exists Pneumococcal series for age 6-64 (4 of 4 - PPSV23 or PCV20) 10/31/2031 01/19/2018, 01/19/2018, 11/06/2016, Additional history exists Tdap Completed 02/02/2019, 11/10/2008 Zoster (shingles) series for age 50+ Completed 07/23/2019, 02/02/2019 Procedures Procedure Name Priority Date/Time Associated Diagnosis Comments XR FFDM MAMMO ACS SCREENING BILATERAL (IA) Routine 12/17/2013 3:00 PM CDT Other screening mammogram LIPID PANEL W REFLEX MEASURED LDL Routine 11/26/2013 1:53 PM CDT DM type 2 (diabetes mellitus, type 2) 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 BREAST SYMPTOMS: No current breast complaints. COMPARISON: ??02/26/11, 08/27/06 BREAST DENSITY: Scattered fibroglandular densities. COMMENTS: No findings of suspicion for malignancy. ? IMPRESSION: BI-RADS CATEGORY: 1 - ??NEGATIVE. RECOMMENDED FOLLOW-UP: Annual Mammography. Exam results letter mailed to patient. Procedure Note Unknown, Doctor - 12/21/2013 BILAT SCREEN MAMMOGRAM DIGITAL SCREENING MAMMOGRAM, BILATERAL, DIGITAL w/CAD - 12/17/2013 3:00 PM. BREAST SYMPTOMS: No current breast complaints. COMPARISON: 02/26/11, 08/27/06 BREAST DENSITY: Scattered fibroglandular densities. COMMENTS: No findings of suspicion for malignancy. IMPRESSION: BI-RADS CATEGORY: 1 - NEGATIVE. RECOMMENDED FOLLOW-UP: Annual Mammography. Exam results letter mailed to patient. Buddy Francis MD MAMMO * LIPID PANEL W REFLEX MEASURED LDL (11/26/2013 1:53 PM CDT) CHOLESTEROL,TOTAL 128 100 - 199 mg/dL 11/26/2013 8:55 PM CDT [facility] TRIGLYCERIDES 91 <150 mg/dL 11/26/2013 8:55 PM CDT [facility] HDL CHOLESTEROL 42 >40 mg/dL 4 8:55 PM CDT [facility] NON-HDL CHOLESTEROL 86 <145 mg/dl 11/26/2013 8:55 PM CDT [facility] CHOL/HDL RATIO 3.05 <4.50 11/26/2013 8:55 PM CDT [facility] LDL CHOLESTEROL 68 <=130 mg/dL 11/26/2013 8:55 PM CDT [facility] PATIENT STATUS FASTING 11/26/2013 8:55 PM CDT [facility] Blood specimen (specimen) BLOOD SPECIMEN / Unknown Venipuncture / Unknown 11/26/2013 1:53 PM CDT 11/26/2013 1:53 PM CDT Buddy Francis MD CHEMISTRY [facility] 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 :07/12/2011 Last Pap Date ?:07/18/2010 Last Pap Result ?:NIL ABN [place]/Bx Past 5 YRS :None Hormone Usage ?:None Menstrual Status ? :Regular Periods [place]/Bx done today ? :No Additional Information :None given HPV Request ?:HPV if ASCUS SPECIMEN SOURCE ?:Cervical/vagina l ThinPrep Vial, screening SPECIMEN ADEQUACY ?:Satisfactory for evaluation No endocervical ? component seen. INTERPRETATION/RES ULT Negative for intraepithelial lesion or malignancy (NIL) Cytology 1st Screener ??:wst Signed by ?:wst This specimen was screened by the FDA approved [employer] System and manually reviewed. NOTE: ??The Pap test is a screening technique, not a diagnostic procedure. ??It is used ??primarily to screen for squamous cancers and precursor lesions. ??Published studies have shown that it is subject to both false negative and false positive results. ??The pap test should not be used as the sole means to diagnose or exclude pre-malignant and malignant lesions. COLLECTED:11/14/11 ? ACCESSIONED: ??11/15/11 ?? 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
--- OUTSIDE RECORDS SUMMARY | 2023-12-20 07:10 | XMS_ITS | Clinical Summary ---
Author Organization [facility] Address [address] [place] [phone] Phone Care Team Providers Care Dispatcher Motor Vehicle Name Role Phone Elise Booker MD Primary Care Provider Allergies Active Allergy Reactions Criticality Noted Date Comments Lisinopril Cough 01/14/2023 Medications Medication Sig Dispensed Refills Start Date End Date Status Alcohol Swabs (Alcohol Wipes) 70 % pads USE FOR CHECKING BLOOD SUGARS 2-3 TIMES DAILY OR DIRECTED. Call clinic to schedule follow up appointment. 03/07/2017 Active ALPRAZolam (XANAX) 0.5 MG tablet Take 0.5 mg by mouth once daily as needed Active aspirin 81 MG chewable tablet CHEW AND SWALLOW 1 tablet (81 mg) by mouth daily. 11/15/2020 Active B Pcxrihr-U-Oaoao Acid (Renal) 1 MG capsule Take 1 capsule by mouth Active calcium carbonate (OS-JASBIR) 1250 (500 Ca) MG chewable tablet Chew 1 tablet Active cholecalciferol (VITAMIN D-3) 25 MCG (1000 UT) capsule Take 1,000 Units by mouth in the morning. Active clobetasol (TEMOVATE) 0.05 % ointment Apply topically daily 07/10/2021 Active folic acid (FOLVITE) 1 MG tablet Take 1,000 mcg by mouth in the morning. 02/13/2016 Active glucose blood test strip Use to test Blood Sugar 4 times daily or as directed. 02/16/2018 Active Insulin Pen Needle (B-D ULTRAFINE III SHORT PEN) 31G X 8 MM misc FOR ADMINISTERING INSULIN AT HOME FOR LEVEMIR AND NOVOLOG 08/30/2015 Active levETIRAcetam (KEPPRA) 1000 MG tablet Take 1 tablet by mouth every night 01/16/2022 Active midodrine (PROAMATINE) 10 MG tablet take 1 tablet (10 mg) by Oral or Feeding Tube route daily as needed (when blood pressure drops low 11/10/2020 Active Multiple Vitamin (One-A-Day Essential) tablet Take 1 tablet by mouth in the morning. 02/13/2016 Active mycophenolate (CELLCEPT) 500 MG tablet Take 500 mg by mouth in the morning and 500 mg in the evening. 02/13/2016 Active Naloxone HCl 4 MG/0.1ML liquid [place] 1 spray (4 mg) into one nostril alternating nostrils once as needed for opioid reversal every 2-3 minutes until assistance arrives. 12/22/2019 Active Nutritional Supplements (Nutritional Drink) liquid Take 1 each by mouth in the morning and 1 each in the evening. 09/05/2022 Active rosuvastatin (CRESTOR) 10 MG tablet Take 10 mg by mouth in the morning. 02/13/2016 Active pantoprazole (PROTONIX) 40 MG EC tablet Take 40 mg by mouth in the morning. 05/14/2022 Active oxyCODONE (ROXICODONE) 10 MG immediate release tablet Take 10 mg by mouth 09/03/2021 Activ e OLANZapine (ZyPREXA) 5 MG tablet Take 5 mg by mouth every night 11/10/2020 Active tacrolimus (PROGRAF) 0.5 MG capsule Take 1 capsule (0.5mg) by mouth twice a day along with four 1mg capsules (total 4.5mg twice a day). 01/17/2022 Active tacrolimus (PROGRAF) 1 MG capsule Take 4 capsules (4 mg) by mouth twice a day along with one 0.5mg capsule (total of 4.5mg twice a day). 09/17/2021 Active venlafaxine 37.5 MG 24 hr tablet Take 37.5 mg by mouth in the morning. 04/04/2022 Active losartan (COZAAR) 25 MG tabletIndications: End stage renal failure on dialysis ([facility]),[facility] (primary) hypertension Take 3 tablets (75 mg total) by mouth 1 (one) time each day 90 tablet 11 03/11/2023 03/10/2024 Active Active Problems Problem Noted Date Diagnosed Date Vulvovaginitis 10/16/2022 Acute gastroenteropathy due to [place] agent Epilepsy, not intractable, without status epilep [...] season) 2023 01/11/2022, 08/14/2020, 07/17/2020 Influenza Vaccine (Season Ended) 2024 04/23/2021, 04/10/2020, 04/10/2020, Additional history exists Pneumococcal PPSV23 Highest Risk Adult Completed 01/19/2018, 11/06/2016, 11/06/2016 Care Teams Dispatcher Motor Vehicle Relationship Specialty Start Date End Date Elise Booker MD [address] [place] [address] [address] [place], [place] [id number] PCP - General Internal Medicine 10/10/22
--- OUTSIDE RECORDS SUMMARY | 2023-12-20 07:10 | XMS_ITS | Continuity of Care Document ---
Author Organization Video Visit - Home Address [address] [place] [address]- Encounter 09/30/23 - 10/03/23 Video Visit - Home [address] [place] [address]- Encounter Diagnosis End stage renal failure on dialysis(Discharge Diagnosis) - 10/01/23 Anemia in chronic kidney disease(Discharge Diagnosis) - 10/01/23 Major depressive disorder, recurrent, in partial remission(Discharge Diagnosis) - 10/01/23 Hemiplegia and hemiparesis following cerebral infarction affecting right dominant side(Discharge Diagnosis) - 10/01/23 Immunodeficiency due to conditions classified elsewhere(Discharge Diagnosis) - 10/01/23 Hypertension in chronic kidney disease due to type II diabetes mellitus (Discharge Diagnosis) - 10/01/23 Hamartoma of lung(Discharge Diagnosis) - 10/01/23 Unspecified protein-calorie malnutrition(Discharge Diagnosis) - 10/01/23 Obstructive sleep apnea (adult) (pediatric)(Discharge Diagnosis) - 10/01/23 Hyperlipidemia(Discharge Diagnosis) - 10/01/23 Type 2 diabetes mellitus with other specified complication(Discharge Diagnosis) - 10/01/23 correction (current) use of opiate analgesic(Discharge Diagnosis) - 10/01/23 Chronic back pain(Discharge Diagnosis) - 10/01/23 Discharge Disposition: Home or Self Care Attending Physician: ALEX Quigley Megan Allergies, Adverse Reactions, Alerts Substance Criticality Severity Reaction Reaction Severity Status Liquid Adhesive Dermatitis Act erin Adhesive Bandage Unable to assess criticality Unknown Contact dermatitis Blisters of multiple sites Active lisinopril Unable to assess criticality Unknown Cough Active zolpidem 1 High criticality Moderate Unknown sleep disturbance Active eszopiclone Unable to assess criticality Unknown Headache Active buPROPion Itching Active oxyCODONE 2 Unable to assess criticality Unknown Itching Active ARIPiprazole Unable to assess criticality Unknown Insomnia Active 1Outside Source Comment: Sleep walk 2Outside Source Comment: Itching with long acting; short [...] inactivated 7 04/02/11 Re corded SARS-CoV-2 (COVID-19) Moderna-1273 01/11/22 Record ed SARS-CoV-2 (COVID-19) Moderna-1273 08/14/20 Record ed SARS-CoV-2 (COVID-19) Esme Ad26 vacc 07/17/20 R ecorded zoster vaccine, [...] 11/28/98 Recorded tetanus 06/19/94 Recorded 1Result Comment: [facility] 2Result Comment: Route: Intramuscular Liner Reroll Tender: San[employer] P[employer] 3Result Comment: Route: Intramuscular Liner Reroll Tender: Sanofi Pasteur 4Result Comment: Route: Intramuscular Liner Reroll Tender: [employer] 5Result Comment: Route: Intramuscular Liner Reroll Tender: [employer] 6Result Comment: Route: Intramuscular Liner Reroll Tender: Sanofi Pasteur 7Result Comment: Route: Intramuscular Liner Reroll Tender: [employer]SmithK[employer] 8Result Comment: Route: Intramuscular Liner Reroll Tender: [employer] 9Result Comment: Route: Intramuscular Liner Reroll Tender: [employer]oSmithK[employer] 10Result Comment: Route: Intramuscular Liner Reroll Tender: [employer] 11Result Comment: Route: Intramuscular Liner Reroll Tender: [employer]ck and [employer] 12Result Comment: Route: Intramuscular Liner Reroll Tender: Randi 13Result Comment: Route: Intramuscular Liner Reroll Tender: Sanofi Pasteur Medications aspirin 81 mg oral capsule 0 Refill(s) Start Date: 10/22/21 Status: Ordered azaTHIOprine 50 mg oral tablet 50 mg = 1 tab, Oral, Daily, 60 unknown unit, Take 2 tablets (100 mg) by mouth daily*, 0 Refill(s) Start Date: 02/12/23 Status: Ordered calcitriol 0.25 mcg oral capsule See Instructions, 1 cap Oral 3 times weekly, 0 Refill(s) Start Date: 10/01/23 Status: Ordered DULoxetine 60 mg oral delayed release capsule Oral, 60 Unknown, 2 Refill(s), Take 1 capsule (60 mg) by mouth daily, 0 Refill(s) Start Date: 08/19/23 Status: Ordered folic acid 1 mg oral tablet 0 Refill(s) Start Date: 10/22/21 Status: Ordered levETIRAcetam 1000 mg oral tablet 90 unknown unit, Take 1 tablet (1,000 mg) by mouth At Bedtime For more refills,schedule an appointment at [phone].*, 0 Refill(s) Start Date: 02/12/23 Status: Ordered losartan 25 mg oral tablet Oral, 25 Unknown, 1 Refill(s), Take 25 mg by mouth every evening, 0 Refill(s) Start Date: 07/07/23 Status: Ordered Mircera 50 mcg/0.3 mL injectable solution See Instructions, 50mcg IV q2 weeks, 0 Refill(s) Start Date: 10/01/23 Status: Ordered Narcan 4 mg/0.1 mL nasal spray 1 Refill(s), [place] 1 spray (4 mg) into one nostril [...] 0 Refill(s) Start Date: 02/12/23 Status: Ordered rosuvastatin 10 mg oral tablet 90 unknown unit, Take 1 tablet (10 mg) by mouth daily*, 0 Refill(s) Start Date: 02/12/23 Status: Ordered tacrolimus 1 mg oral capsule 6 caps, every 12 hr, 0 Refill(s) Start Date: 02/12/23 Status: Ordered Problem List Condition Confirmation Course Effective Dates Status Health Status Informant Anemia in chronic kidney disease Confirmed Active Chronic back pain Confirmed Active Chronic kidney disease due to type 2 diabetes mellitus (disorder) Confirmed Active Type 2 diabetes mellitus with other specified complication Confirmed Active Unspecified protein-calorie malnutrition Confirmed Active Dependence on dialysis due to end stage renal disease Confirmed Active End stage renal failure on dialysis Confirmed 03/01/20 Active Epilepsy Confirmed Active H/O: heart recipient Confirmed 07/15/18 Active Hamartoma of lung Confirmed Active Hemiplegia and hemiparesis following cerebral infarction affecting right dominant side Confirmed Active Hyperlipidemia Confirmed 03/29/13 Active 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 Confirmed Active Hypertension in chronic kidney disease due to type II diabetes mellitus Confirmed Active Immunodeficiency due to conditions classified elsewhere Confirmed Active Immunodeficiency due to drugs Confirmed Active correction (current) use of opiate analgesic Confirmed Active Obstructive sleep apnea (adult) (pediatric) Confirmed Active Major depressive disorder, recurrent, in partial remission Confirmed Active Diagnosis Diagnosis Type Effective Dates Health Status Clinical Service Informant End stage renal failure on dialysis Discharge Diagnosis 10/01/23 Major depressive disorder, recurrent, in partial remission Discharge Diagnosis 10/01/23 Hemiplegia and hemiparesis following cerebral infarction affecting right dominant side Discharge Diagnosis 10/01/23 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 Discharge Diagnosis 10/01/23 Chronic back pain Discharge Diagnosis 10/01/23 Anemia in chronic kidney disease Discharge Diagnosis 10/01/23 Immunodeficiency due to conditions classified elsewhere Discharge Diagnosis 10/01/23 Hypertension in chronic kidney disease due to type II diabetes mellitus Discharge Diagnosis 10/01/23 Hamartoma of lung Discharge Diagnosis 10/01/23 Unspecified protein-calorie malnutrition Discharge Diagnosis 10/01/23 Obstructive sleep apnea (adult) (pediatric) Discharge Diagnosis 10/01/23 Hyperlipidemia Discharge Diagnosis 10/01/23 Type 2 diabetes mellitus with other specified complication Discharge Diagnosis 10/01/23 Procedures Procedure Date Related Diagnosis Body Site Status Thoracoscopic wedge resectio n of lung 1 06/25/23 Completed Arteriovenous fistula operation 2 06/29/18 Completed Heart transplant 2016 Complete d ICD - Internal cardiac defib rillator procedure 3 02/02/12 Completed LVAD - Implantation of left ventricular assist device 4 Comp leted 1VATS RUL wedge resection for pulmonary nodule 2Creattion of LUE AVF 3placement 42 to 3 years Prior to heart transplant recipient per patient report Social History Social History Type Response Smoking Status Former smoker, quit more than 30 days ago entered on: 06/27/22 Sex EVALUATION AND MANAGEMENT NOTE:FIND:PT:OUTPATIENT:DOC:{PROVIDER} * ALEX Quigley, Genna: PERFORM Event Display: General Clinic Note (Physician) Authored Date: [id number] Chief Complaint Comprehensive Health Evaluation for the re-evaluation of chronic conditions. History of Present Illness CECIL OROZCO??is a??Black or ??female??57 Years??old with??_??for??_??years due to??_.??_??patient seen via Telehealth for a??_today??with their originating site??home??with Provider distant site??home. Active medical problems include: ESRD on HD, anemia in CKD, secondary hyperparathyroidism, immunodeficiency,??previous heart transplant??due to NICM,??hypertension, hyperlipidemia,??GERD, type 2 diabetes??previous CVA with right-sided hemiplegia,??epilepsy,??malnutrition,??chronic??back pain,??pulmo nary??hamartoma status post??resection,??GRETA, long-term opioid use. Patient identity??was??verbally verified using??full name??and ??for this encounter. Consent??was??obtained for use of Telehealth this Encounter. This visit was conducted using live two way audio and visual communication.?? Patient is sitting on the couch during our visit and does not appear in distress. Patient identity was verbally verified using full name and date of for this encounter. Pt was hospitalized 06/26/2023 - 07/03/2023 for VATS RUL lung wedge resection,??07/09 - 07/13/2023 for pleural effusion,??and??08/10 - 08/14/2023 for respiratory failure due to volume overload due to missed dialysis.?? Patient lives in an apartment alone.?? Has adult children??who??are supportive and assi st with??transportation and taking her to appointments.?? Patient says that??her depression has improved significantly in recent months and she is very happy about this.?Her appetite is much better.?? Currently in transplant workup at [facility]. Review of Systems Constitutional: No Weight Change, improving??appetite- says she feels more hungry recently, No Fever, No Chills, No Night Sweats, No Fatigue, No Malaise ENT/Mouth:?? No Hearing Changes, No Ear Pain, No Nasal Congestion, No Loss of smell, No Sinus Pain,No Hoarseness, No Sore throat, No Rhinorrhea, No Swallowing Difficulty, No Loss of taste Eyes:?? No Eye Pain, No Swelling, No Redness, No Foreign Body, No Discharge, feels vision is not asclear in the last few months, wears glasses Cardiovascular:?? No Chest Pain, No SOB, No PND, No Dyspnea on Exertion, No Orthopnea, No Claudication, No Edema, No Palpitations Respiratory:?? No Cough, No Sputum, No Wheezing, No Dyspnea, recent lung resection in 05/2023 Gastrointestinal:?No Nausea,?? No Vomiting,?? No Diarrhea,?? No Constipation,?? No Abdominal Pain,?? No Heartburn,?? No Anorexia,?? No Dysphagia,?? No Hematochezia,?? No Melena,?? No Flatulence,?? No Jaundice Genitourinary: No Abnormal bleeding, no longer urinates Musculoskeletal: No Arthralgias, No Myalgias, No Joint Swelling, No Joint Stiffness,??chronic back??Back Pain, No Neck Pain Skin:?? No Skin Lesions/Rash, No Pruritus, No Hair Changes, No ulcers/wounds, No amputations Neuro:??Right-sided hemiplegia noted to??right hand since CVA,??No Numbness, No Paresthesias, No Loss of Consciousness, No Syncope, No Dizziness, No Headache, No Coordination Changes, No Recent Falls, No Tremor, does not use assistive device for ambulation Psych:?? No Anxiety/Panic, Depression that is significantly improved, No Insomnia, No Personality Changes, No Delusions, No Rumination, No Suicidal Ideation/Homicidal Ideation, No Auditory Hallucinations/Visual Hallucinations, No Memory Changes Heme/Lymph:?? No Bruising, No Bleeding, No Lymphadenopathy Endocrine:?? No Polyuria, No Polydipsia, No Temperature Intolerance Immunology: Positive for immunocompromised state due to ESRD and immunosuppressive drugs Physical Exam Vitals & Measurements No vital signs were taken due to telehealth nature of visit. Per dialysis clinic records, post-tx weight on 09/26/23 was 66kg, post-tx BP on 09/26/23 was 130-65. GENERAL APPEARANCE: The patient is a well-developed female in no acute distress.?? Head: Normocephalic. Face symmetric, no weakness, no involuntary movements or twitching. Ears: There??is no??evidence of any external masses or lesions noted.?? Eyes: Extraocular muscles are intact. No nystagmus, ptosis, lid lag, discharge or crusting.??Conjunctiva clear.??Sclera white,??no lesion??and no redness present.. Wearing glasses. Nose: Septum is midline. No evidence of discharge. Mouth: Oral mucosa is pink. Dentition is good. Tongue symmetric, protrudes midline, no tremor. No??pursed lip??breathing and able to speak a full sentence. NEUROLOGIC: Alert and oriented to person, place and time. Thought coherent. Remote and recent memories intact.?? PSYCHIATRIC: Appearance, behavior, speech and affect appropriate.?? PE limited due to telehealth nature of visit. ?? Depression Screening Little Interest - Pleasure in Activities: Not at all (09/30/23 11:01:00) Feeling Down, Depressed, Hopeless: Not at all (09/30/23 11:01:00) Initial Depression Screen Score: 0 Score (09/30/23 11:01:00) Trouble Falling or Staying Asleep: Nearly every day (09/30/23 11:01:00) Feeling Tired or Little Energy: Not at all (09/30/23 11:01:00) Poor Appetite or Overeating: Not at all (09/30/23 11:01:00) Feeling Bad About Yourself: Not at all (09/30/23 11:01:00) Trouble Concentrating: Not at all (09/30/23 11:01:00) Moving or Speaking Slowly: Not at all (09/30/23 11:01:00) Thoughts Better Off or Hurting Self: Not at all (09/30/23 11:01:00) Difficulty at Work, Home, Getting Along: Not difficult at all (09/30/23 11:01:00) Detailed Depression Screen Score: 3 (09/30/23 11:01:00) Total Depression Screen Score: 3 (09/30/23 11:01:00) Funtional Assessment No qualifying data available. Assessment/Plan 1.??End stage renal failure on dialysis Stable. ESRD due to diabetes on dialysis since 2017. ??Did PD until 05/2019.??On HD: MWF for 3 hours??and 15 minutes via LUE AVF. TW:??Meeting TW of 66.5 kg. KT/V: 1.68, adequate, as of 09/08/2023. URR 78 3% as . Potassium level: K 4.6, in range, as of 09/08/2023. P: Followed by Robert Engel DO, [facility]. Low sodium, low phos, low potassium diet, fluid restriction, medication and treatment compliance advised. Pt is currently doing transplant workup at the [facility]. 2.??Dependence on dialysis due to end stage renal disease Stable. ESRD due to diabetes on dialysis since 2017. ??Did PD until 05/2019.??On HD: MWF for 3 hours??and 15 minutes via LUE AVF. TW:??Meeting TW of 66.5 kg. KT/V: 1.68, adequate, as of 09/08/2023. URR 78 3% as . Potassium level: K 4.6, in range, as of 09/08/2023. P: Followed by Robert Engel DO, [facility]. Low sodium, low phos, low potassium diet, fluid restriction, medication and treatment compliance advised. Pt is currently doing transplant workup at the [facility]. 3.??Anemia in chronic kidney disease Stable. Hg 11.2 on 09/24/2023. Asymptomatic. No s/s bleeding. Continue on Mircera per in-center anemia protocol. Managed by nephrology. Will monitor H/H and condition. 4.??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 Hyperparathyroidism secondary to ESRD. Stable. On in-center bone/mineral protocol of calcitriol. PTH 367 as of 09/08/2023. Ca 9.2 as of 09/08/2023??for. PO4 4.9 as of 09/08/2023. Managed by nephrology and in-center dietitian. Counseled on low phosphorous/renal diet. 5.??Immunodeficiency due to drugs Immunodeficiency due to immunosuppressive drugs for heart transplant.?? Patient is on tacrolimus and azathioprine.?? Stable. Pneumococcal and flu shots up to date. COVID immunizations x??2. Handwashing, avoiding sick contacts and crowds recommended.?? 6.??H/O: heart recipient Stable.?? Patient is status post??orthotopic heart transplant in 2016 for nonischemic cardiomyopathy. ??She is on tacrolimus and azathioprine for??antirejection medications. Patient is followed by cardiology at [facility], Dr. Borja. ??Follow-up??as??scheduled. 7.??Immunodeficiency due to conditions classified elsewhere Immunodeficiency due to ESKD. Stable. Pneumococcal and flu shots up to date. COVID immunizations x??2. Handwashing, avoiding sick contacts and crowds recommended.?? 8.??Hypertension in chronic kidney disease due to type II diabetes mellitus HTN: Pt has T2DM complicated by ESRD and subsequently, HTN. Suboptimal due to low BPs recently. Last 4 post-dialysis treatment SBPs range: 112-130. Pt denies headaches, chest pain,??dizziness, blurred vision. Managed with no medications currently- in previous note, Dr. George (cardiology) was holding losartan. Pt says she was instructed to still hold losartan due to low BPs and dizziness. Pt did have episode of hypotension during dialysis on 09/21 where BP went from 104/63 to 64/37 within 12 minutes per dialysis clinic notes. Pt was given 300mL saline bolus and gradually BP recovered. Followed by nephrology. Follow up as scheduled. 9.??Major depressive disorder, recurrent, in partial remission Significantly improved. PHQ-9 score 3 today. Pt scored 16 11/27/22, 9 on 02/27/23. Pt is now taking duloxetine 60mg QD, and is off venlafaxine and sertraline and has noticed much improvement in depressive symptoms. She says, instead of me just sitting around and feeling depressed, I'm doing more things. I'm watching TV, getting out of my apartment. I'm just not sad like I was. Pt says [facility] RN is working on getting consistent therapy set up. Pt denies any suicidal thoughts or thoughts of self-harm. Says her appetite has also significantly improved. Says I'm hungry a lot more often and able to eat more. Continue duloxetine. Pt says she has been seeing psychiatry resident Dinah Dumas and Dalia Thakur, WAIST PRESSER. Follow up as scheduled. 10.??Hemiplegia and hemiparesis following cerebral infarction affecting right dominant side Stable. Per medical records, pt had ischemic left posterior temporal stroke c/b hemorrhagic conversion 04/2019. Pt reports some weakness to her right hand that causes her to drop things once in a while, otherwise she does not note any weakness in her right arm or leg. Ambulates without a cane or walker without difficulty. No recent falls. Denies acute neuro changes, LOUIE. Adequate blood pressure advised, s/s stroke reviewed and importance of presenting to ED if they occur. Continue ASA, rosuvastatin. Follow up with [facility] neurology as scheduled. Pt says she sees neurology annually, was last seen summer 2022. 11.??Chronic kidney disease due to type 2 diabetes mellitus (disorder) Stable. Multiple complications due to DM including ESRD, polyneuropathy, HLD. Hgb A1C was??4.7 on 09/08/23. DM controlled with diet only. Reviewed s/s of hypo/hyperglycemia. Diabetic carb consistent diet advised. Continue to monitor A1C quarterly.?? Last Eye Exam: 2022- recently missed an appt, her daughter is currently rescheduling. She notes that in the last few months, her vision seems more blurry. Already wears glasses. Denies previous dx ofDM retinopathy or laser or injection tx. Last Foot Exam: 2022 Patient to follow up with PCP, Dr. Booker, as recommended. Will continue to monitor. Per medical records, pt has ESRD due to T2DM. See A & P above for ESRD. 12.??Type 2 diabetes mellitus with other specified complication Pt has T2DM complicated by hyperlipidemia per medical records. Stable as evidenced by no??chest pain, claudication, SOB, neuro changes. Tolerating statin without issues.??No lipid panel??available inE today.?? Patient being managed with rosuvastatin. Diet low in saturated fats and high in fiber reviewed, medication adherence,??and regular physical activity advised. Follow up with PCP as scheduled. 13.??Chronic back pain Suboptimal. Pt reports chronic aching??midback pain directly behind her breasts. Reports that she feels like her breasts are too heavy. Says she has had chronic pain to her back for years. Has not had imaging or workup previously. No previous injections for pain. She does stretching exercises that PT has given her in the past, uses heating pads, takes oxycodone 10mg once daily but says that many days, she doesn't need to use the oxycodone at all. Oxycodone prescribed by PCP, Dr. Booker. Pt planning to get referral to orthopedics once she is done with workup for transplant and has more timeto pursue. Follow up with PCP as recommended. 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 Pt on once daily PRN 10mg oxycodone for chronic midback pain. Prescribed by PCP. Pt says that she doesn't use it every day, often can manage pain with stretching and heating pad. Has narcan. Follow up with PCP as recommended. 15.??Epilepsy Stable. Dx noted in medical records. Pt says she had a seizure at the same time as CVA in 04/2019. Has not had any seizures or seizure-like activity since 04/2019. Managed with keppra. Followed by neurology at [facility]. Follow up as recommended. 16.??Hamartoma of lung Stable. Pt had VATS RUL wedge resection of pulmonary hamartoma on 06/26/23. Pt had pulmonary noduleon imaging and there was concern for malignancy given previous weight loss so resection was pursued. Per pt, all biopsies from procedure were negative for malignancy. She denies any SOB with exertionor at rest, wheezing, cough. Her postoperative pain is almost completely resolved. Follow up with pulmonology, Dr. Staples, as recommended. 17.??Unspecified protein-calorie malnutrition Improving. Pt had significant weight loss last year that was concerning for malignancy (reason for lung biopsy in 05/2023) which was ruled out and thought to be related to depression and decreased oral intake. At last [facility] visit, pt weight was 184.8 lbs on 02/06/23. Per dialysis clinic records, weight on??09/26/23 was 146.4 lbs.??Current BMI 23.6. Pt reports that her appetite is much improved since starting on duloxetine and she is able to eat more. Albumin improved to 3.9 on 09/08/23, increased from 3.6 on 08/27/23. Pt on oral nutritional supplement protocol at dialysis center. Pt says that she will start getting [employer] meal service starting 10/02 which she is excited about. Monitored by in-center dietitian. Follow up as scheduled. 18.??Obstructive sleep apnea (adult) (pediatric) Suboptimal. Pt??does not wear a CPAP, says she has not used one for years. Feels well rested in themorning when she wakes up. Discussed complications of unmanaged GRETA and encouraged further discussion??of tx options with PCP. Reviewed good sleep hygiene practices, including regular bedtime routine, sleeping in a bed, limited lighting,??avoiding caffeine in the evenings, not eating within 3 hours of bedtime,??use of electronics??in bed. Pt was supposed to have a sleep study done, but missed appt when in hospital in 05/2023. Pt would appreciate assistance from [facility] To reschedule. 19.??Hyperlipidemia See A & P for Type 2 DM with other specified complication. Patient Information Name:CECIL OROZCO Corina Address: [address] [place] [id number] Sex:Female Date of :1965 Phone:[phone] [facility]:[id number] Location:Video Visit - Home Problem List/Past Medical History Ongoing Anemia in chronic kidney disease Chronic back pain Chronic kidney disease due to type 2 diabetes mellitus (disorder) Dependence on dialysis due to end stage renal disease End stage renal failure on dialysis Epilepsy H/O: heart recipient Hamartoma of lung Hemiplegia and hemiparesis following cerebral infarction affecting right dominant side Hyperlipidemia 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 Hypertension in chronic kidney disease due to type II diabetes mellitus Immunodeficiency due to conditions classified elsewhere Immunodeficiency due to drugs 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 Major depressive disorder, recurrent, in partial remission Obstructive sleep apnea (adult) (pediatric) Type 2 diabetes mellitus with other specified complication Unspecified protein-calorie malnutrition Procedure/Surgical History ???Thoracoscopic wedge resection of lung (06/26/2023)???Arteriovenous fistula operation (06/30/2018)???Heart transplant (2016)???ICD - Internal cardiac defibrillator procedure (02/03/2012)???LVAD - Implantation of left ventricular assist device Medications aspirin 81 mg oral capsule azaTHIOprine 50 mg oral tablet, 50 mg= 1 tab, Oral, Daily calcitriol 0.25 mcg oral capsule, See Instructions DULoxetine 60 mg oral delayed release capsule, Oral folic acid 1 mg oral tablet levETIRAcetam 1000 mg oral tablet losartan 25 mg oral tablet, Oral,?On hold for procedure: on hold per cardiology due to some lowBPs and lightheadedness Mircera 50 mcg/0.3 mL injectable solution, See Instructions Narcan 4 mg/0.1 mL nasal spray oxyCODONE 10 mg oral tablet, 10 mg pantoprazole 40 mg oral delayed release tablet rosuvastatin 10 mg oral tablet tacrolimus 1 mg oral capsule, 6 caps, every 12 hr Allergies zolpidem??(Unknown, sleep disturbance) ARIPiprazole??(Insomnia) Adhesive Bandage??(Contact dermatitis, Blisters of multiple sites) eszopiclone??(Headache) lisinopril??(Cough) oxyCODONE??(Itching) Liquid Adhesive??(Dermatitis) buPROPion??(Itching) Social History Electronic Cigarette/Vaping Electronic Cigarette Use: Former use, quit more than 90 days ago., 06/27/2022 Substance Use Use: Never., 06/27/2022 Tobacco Smoking tobacco use: Former smoker, quit more than 30 days ago., 06/27/2022 Immunizations Vaccine Date Status Commentsinfluenza virus vaccine, inactivated 04/18/2023 Recorded [facility] SARS-CoV-2 (COVID-19) Moderna-1273 01/11/2022 Recorded SARS-CoV-2 (COVID-19) Moderna-1273 08/14/2020 Recorded SARS-CoV-2 (COVID-19) Esme Ad26 vacc 07/17/2020 Recorded influenza virus vaccine, inactivated 04/10/2020 Recorded influenza virus vaccine, inactivated 07/23/2019 Recorded Route: Intramuscular Liner Reroll Tender: Sanofi Pasteur zoster vaccine, inactivated 07/23/2019 Recorded Route: Intramuscular Liner Reroll Tender: GlaxoSmithKline zoster vaccine, inactivated 02/02/2019 Recorded Route: Intramuscular Liner Reroll Tender: GlaxoSmithKline Tdap 02/02/2019 Recorded Route: Intramuscular Liner Reroll Tender: GlaxoSmithKline pneumococcal (PPS23) 01/19/2018 Recorded influenza virus vaccine, inactivated 04/04/2017 Recorded Route: Intramuscular Liner Reroll Tender: Sanofi Pasteur pneumococcal (PPS23) 11/06/2016 Recorded pneumococcal (PCV13) 11/06/2016 Recorded Route: Intramuscular Liner Reroll Tender: [facility] influenza 05/09/2016 Recorded Route: Intramuscular Liner Reroll Tender: Sanofi Pasteur influenza virus vaccine, inactivated 04/28/2015 Recorded Route: Intramuscular Liner Reroll Tender: GlaxoSmithKline pneumococcal (PPS23) 04/28/2015 Recorded Route: Intramuscular Liner Reroll Tender: [employer] influenza virus vaccine, inactivated 03/31/2014 Recorded Route: Intramuscular Liner Reroll Tender: GlaxoSmithKline Hep B 11/26/2013 Recorded influenza virus vaccine, inactivated 06/20/2013 Recorded Route: Intramuscular Liner Reroll Tender: Sanofi Pasteur influenza 04/08/2012 Recorded influenza 04/02/2011 Recorded influenza virus vaccine, inactivated 04/02/2011 Recorded Route: Intramuscular Liner Reroll Tender: GlaxoSmithKline influenza 04/10/2010 Recorded Tdap 11/10/2008 Recorded pneumococcal (PCV7) 11/10/2008 Recorded influenza 05/11/2008 Recorded influenza 06/11/2006 Recorded influenza 04/24/2005 Recorded tetanus 11/28/1998 Recorded tetanus 06/19/1994 Recorded Lab Results Albumin Level: 3.9 g/dL (09/08/23 10:17:57) Blood Glucose: 109 mg/dL (08/13/23 06:37:00) BUN:??30.8 mg/dL??Critical (08/13/23 06:37:00) Calcium: 9.1 mg/dL (09/08/23 10:17:57) Chloride: 99 mEq/L (08/11/23 11:06:00) CO2: 24 mEq/L (09/08/23 10:17:57) Creatinine: 9.91 mg/dL (09/08/23 10:17:57) Ferritin: 1059 ng/mL (09/08/23 10:17:57) Hep Bs Ab: 7 (06/09/23 11:46:25) Hgb: 11.2 g/dL (09/24/23 10:37:42) Lab Source: dcs (08/13/23 06:37:00) LDL: 98 mg/dL (06/09/23 11:46:25) LVEF Collection Date: 08/13/23 06:37:00 (08/13/23 06:37:00) MCV: 106 fL (08/13/23 06:37:00) Parathyroid Hormone (PTH): 367 pg/mL (09/08/23 10:17:57) Phosphorus Level: 4.9 mg/dL (09/08/23 10:17:57) Platelet: 194 (08/13/23 06:37:00) Potassium Level: Potassium Level (09/24/23 10:37:42) Sodium Level: 137 mEq/L (08/13/23 06:37:00) Urea Reduction Ratio: 78 % (09/08/23 10:17:57) WBC: 3.7 (08/13/23 06:37:00) Patient Care team information Care Team Personnel Name: Sanchez Sanchez Position: External Provider Member Role: Belt Sander Stone Name: Elise Boraj Position: External Provider Member Role: Powertrain Control Systems Engineer Name: CLAU Castle Tammy Position: Nurse - [facility] Member Role: Leasing Sales Consultant Name: Elise Booker Position: External Provider Member Role: Family Medicine Name: [facility] Aurora Schwartz Position: External Provider - Clinic Member Role: Dialysis Center Address: Address: [address] [place] [address]- Name: Antonio Han Position: External Provider Member Role: Building Wrecker Name: Tx Ana Copeland Position: External Provider Member Role: Director [facility] Care Team Related Persons Name: Gaurav Bullock Name: Tg Arizmendi
--- OUTSIDE RECORDS SUMMARY | 2023-12-20 07:11 | XMS_ITS | Continuity of Care Document ---
Author Organization [facility] Address [address] [address] [place] [address] Phone Care Team Providers Care Grain Elevator Motor Starter Name Role Phone Jose Hernandez MD Unavailable Unavailable Allergies, Adverse Reactions, Alerts Substance Reaction Status Criticality No Known allergies Medications Medication Instructions Dosage Effective Dates (start - stop) Status Comments omeprazole 20 mg Cap, Delayed Release take 1 Capsule by Oral route 2 times every day 1 Capsule - Active Percocet 10 mg-325 mg Tab take 1 tablet by oral route every 6 hours as needed 1.00 tablet - Active Coreg 25 mg Tab take 1 tablet (25MG) by oral route 2 times every day with food 25 MG - Active metformin 500 mg Tab take 1 tablet (500MG) by ORAL route 2 times every day 500 MG - Active Lantus 100 unit/mL SubQ Cartridge inject by subcutaneous route as per insulin protocol - Active lisinopril 10 mg Tab take 1 tablet (10MG) by oral route every day 10 MG - Active furosemide 20 mg Tab take 1 tablet (20MG) by ORAL route every day 20 MG - Active venlafaxine 75 mg Tab take 1 tablet (75MG) by oral route 3 times every day with food 75 MG - Active spironolactone 25 mg Tab take 0.5 tablet (12.5MG) by ORAL route every day 12.5 MG - Active clonazepam 2 mg Tab take 1 tablet (2MG) by oral route 2 times every day 2 MG - Active temazepam 30 mg Cap take 1 capsule (30MG) by oral route every day at bedtime as needed 30 MG - Active cyclobenzaprine 10 mg Tab take 1 tablet (10MG) by ORAL route 3 times every day 10 MG - Active Necon 0.5/35 (28) 0.5 mg-35 mcg Tab take 1 tablet by oral route every day 1.00 tablet - Active aspirin 81 mg Tab take 1 tablet (81MG) by oral route every day - Active Procedures Procedure Date Colonoscopy Flex; Dx (sep Pro) 11 Offic/outpt E&m [facility] 2 11 [id number] G8417 G8553 Ugi Endo; W/bx 1/mx Level Iv-surg Path Gross/micro 11 Level Iv-surg Path Gross/micro 11 Level Iv-surg Path Gross/micro 11 Offic/outpt E&m [facility] G8447 [id number] G8417 Advance Directives Directive Yes / No Effective Date File Name No Information Encounters Encounter Description Practice Location Reason(s) For Visit Diagnoses Date Provider Providers Copied on Encounter [facility], [address] [address], [place], [place], [id number], [place] tel:[phone] [facility] No Information 9 David Garcia. [address] [place] [address], [id number], [place]. tel:[phone] [facility], [address] [address], [place], [id number], [place] tel:[phone] [facility] No Information 2 No Information [facility], [address] [address], [place], [place], [id number], [place] tel:[phone] [facility] Abdominal Pain, UnspecifiedCons tipation Unspecified Dianna Connors. [address] [place] [address], [id number], . tel:[phone] Offic/outpt E&m [facility] 2 [facility], [address] [address], [place], [place], [id number], tel:[phone] [facility] Abdominal pain (chief complaint)B loating (chief complaint) H. Pylori InfectionH. Pylori InfectionEpigas tric PainGastritis W/o BleedConstipati on Unspecified 1 No Information [facility], [address] [address], [place], [id number], [place] tel:[phone] [facility] Gastritis W/o BleedH. Pylori InfectionGastri tis W/o Bleed Sep- 1 Bridgette Casanova. [address] [place] [address], [place], [id number], . tel:[phone] Referring Provider: Mitul Gant, [address], [place], [address]. tel:[phone] Offic/outpt E&m [facility], [address] [address], [place], [place], [id number], [place] tel:[phone] [facility] Difficulty swallowing (chief complaint)b urning in stomach and chest (chief complaint) Dysphagia, UnspecifiedEpig astric PainFlatul/eruc tat/gas PainDiarrhea 1 Bridgette Casanova. [facility] [address], [place], [id number], . tel:[phone] Referring Provider: Mitul Gant, [address], [place], [address]. tel:[phone] Family History Family Member Type Diagnosis Age At Onset First degree family history Problem (finding) No Family history of No history of Colon Polyps First degree family history Problem (finding) No history of Crohn's First degree family history Problem (finding) No history of Ulcerative Colitis First degree family history Problem (finding) No history of Cancer, colon Payers Payer name Insurance type Covered green party ID Authoriza tipepper(s) Medicare NGS [id number] Social History Type Description Quantity Date Captured Comments Sex Female Smoking Status No Information Chief Complaint And Reason For Visit No Information Reason For Referral Reason For Referral No Information History Of Present Illness Encounter Date Complaint History Of Prese nt Illness No Information Functional Status Date Functional Assessmen t No Information Instructions Date Instruction Additional Infor mation No Information Assessments Type Assessment Date No Information Patient Care Teams Name Effective Dates (start - stop) Status Members No Information
== END 2023-12-19 06:14 | disposition home or self-care (01) ==
LOC: AMB 12-20 07:07
PROVIDERS: Visit Provider Family Medicine
DX: R51.9 Headache, unspecified (principal); R11.2 Nausea with vomiting, unspecified
CPT/HCPCS: A0425; A0433